=== PATIENT | female | born 1980 | race Caucasian/White ===

== ENCOUNTER 2016-09-16 22:00 | Outpatient (CLI) | payer BC, MEDICAID ==
[~2016-09-16] VITALS: Ht 170.2 cm; Wt 69.4 kg
[~2016-09-16 22:00] MED LIST: CEPH-507 PO; DOCU100C37 PO; FLUC150T PO; IBUP-1780 PO; OXYC-12; OXYC-465 PO; PREN1TAB39 PO; TERC45CR VG
[2016-09-16 22:20] VITALS: BP 129/76
[2016-09-16] MEDS ORDERED: D5 LR IV SOLUTION 1,000 ML IV ONE (22:23)
[2016-09-16] MEDS ORDERED: D5 LR IV SOLUTION 1,000 ML IV SCH (22:30)
[2016-09-16] MEDS ORDERED: LOPERAMIDE 2 MG (IMODIUM) CAP PO ONE (22:30)
[2016-09-16] MEDS ORDERED: ACETAMINOPHEN 500 MG TAB (TYLENOL) PO PRN (22:30)
[2016-09-16] MEDS ORDERED: LOPERAMIDE 2 MG (IMODIUM) CAP PO PRN (22:30)
[2016-09-16] MEDS ORDERED: ONDANSETRON 4 MG/2 ML (SDV) Z0FRAN IVP PRN (22:30)
[2016-09-16 22:42] LABS: KETONES,URINE 3+ (NEGATIVE); LEUKOCYTE ESTERASE ,URINE 2+ (NEGATIVE); NITRITE,URINE NEGATIVE (NEGATIVE); PH,URINE 6 (5-9); PROTEIN,URINE 2+ (NEGATIVE); UROBILINOGEN,URINE 1 MG/DL (NORMAL)
[2016-09-16 22:52] LABS: BASOPHILS % (AUTO) 0 % (0-10); EOSINOPHILS # (AUTO) 0.2 10^3/uL (0.0-0.3); EOSINOPHILS % (AUTO) 2 % (0-10); LYMPHOCYTES # (AUTO) 0.9 X 10^3 (1.0-4.0); LYMPHOCYTES % (AUTO) 8 % (12-44); MEAN CORPUSCULAR HEMOGLOBIN 26 PG (25-34); MEAN CORPUSCULAR HGB CONC 32 G/DL (32-36); MEAN CORPUSCULAR VOLUME 83 FL (80-99); MEAN PLATELET VOLUME 10.8 FL (7.4-10.4); MONOCYTES # (AUTO) 0.5 X 10^3 (0.0-1.0); MONOCYTES % (AUTO) 5 % (0-12); NEUTROPHILS # (AUTO) 9.4 X 10^3 (1.8-7.8); NEUTROPHILS % (AUTO) 86 % (42-75); PLATELET COUNT 134 10^3/uL (130-400); RED BLOOD COUNT 4.02 10^6/uL (4.35-5.85); RED CELL DISTRIBUTION WIDTH 13.4 % (10.0-14.5); WHITE BLOOD COUNT 10.9 10^3/uL (4.3-11.0)
[2016-09-16 22:53] LABS: BILIRUBIN,URINE 1+ (NEGATIVE)
[2016-09-16 22:56] LABS: WBC,URINE 25-50 /HPF
[2016-09-16 23:05] LABS: PROTEIN/CREATININE RATIO 0.1
[2016-09-16 23:14] LABS: ALANINE AMINOTRANSFERASE 16 U/L (0-55); ALBUMIN 3.2 GM/DL (3.2-4.5); ANION GAP 14 MMOL/L (5-14); ASPARTATE AMINO TRANSFERASE 25 U/L (5-34); BILIRUBIN,TOTAL 0.4 MG/DL (0.1-1.0); BLOOD UREA NITROGEN 10 MG/DL (7-18); BUN/CREATININE RATIO 14; CALCIUM 7.8 MG/DL (8.5-10.1); CARBON DIOXIDE 17 MMOL/L (21-32); CHLORIDE 105 MMOL/L (98-107); CREATININE SERUM 0.69 MG/DL (0.60-1.30); GFR ESTIMATED > 60; GLUCOSE 92 MG/DL (70-105); LACTATE DEHYDROGENASE 179 U/L (125-220); POTASSIUM 3.3 MMOL/L (3.6-5.0); SODIUM 136 MMOL/L (135-145); TOTAL PROTEIN 6.3 GM/DL (6.4-8.2); URIC ACID 4.7 MG/DL (2.6-7.2)
[2016-09-16 23:24] VITALS: BP 114/77
[2016-09-16] MEDS ORDERED: ONDANSETRON 4 MG/2 ML (SDV) Z0FRAN ONE (23:36)
[2016-09-16] MEDS ORDERED: LOPERAMIDE 2 MG (IMODIUM) CAP ONE (23:47)
[2016-09-17 00:21] VITALS: BP 114/77
--- NOTE | 2016-09-17 10:26 | Physician Query-Final Dx ---
JAVIER OLIVIER 09/17/16 1026: Clinic Account Progress/Dx Physician Query: Please give diagnosis Date of Service Sep 16, 2016 at 22:00 JUAN M TERRY MD 09/20/16 0911: Clinic Account Progress/Dx DIAGNOSIS: Diagnosis false labor JAVIER OLIVIER Sep 17, 2016 10:26 JUAN M TERRY MD Sep 20, 2016 09:11
== END 2016-09-17 00:21 | disposition home or self-care (01) ==
LOC: WSo 22:00
PROVIDERS: ATTEND Obstetrics & Gynecology
DX: O47.03 False labor before 37 completed weeks of gestation, third trimester (principal); Z3A.30 30 weeks gestation of pregnancy
CPT/HCPCS: 36415; 80053; 81000; 82570; 83615; 84156; 84550; 85025; 87088; 96361; 96374; 99213

== ENCOUNTER → 2016-10-05 | Outpatient (CLI) | payer BC, MEDICAID ==
[~2016-10-05] MED LIST changes: +BETAMETHASONE ACE/NA PHOS 6 MG/ML (CELESTONE SOLUSPAN) ONE
== END ==
LOC: WSo 11:09
PROVIDERS: ATTEND Obstetrics & Gynecology
DX: O09.219 Supervision of pregnancy with history of pre-term labor, unspecified trimester (principal)
CPT/HCPCS: 96372

== ENCOUNTER 2016-10-11 06:01 | Outpatient (CLI) | payer BC, MEDICAID ==
[~2016-10-11] VITALS: Ht 170.2 cm; Wt 69.4 kg
[~2016-10-11 06:01] MED LIST changes: -BETAMETHASONE ACE/NA PHOS 6 MG/ML (CELESTONE SOLUSPAN) ONE
[2016-10-11 06:22] VITALS: BP 127/78
[2016-10-11 07:00] LABS: BILIRUBIN,URINE NEGATIVE (NEGATIVE); KETONES,URINE NEGATIVE (NEGATIVE); LEUKOCYTE ESTERASE ,URINE 1+ (NEGATIVE); NITRITE,URINE NEGATIVE (NEGATIVE); PH,URINE 7 (5-9); PROTEIN,URINE NEGATIVE (NEGATIVE); UROBILINOGEN,URINE NORMAL (NORMAL)
[2016-10-11 07:32] LABS: BASOPHILS % (AUTO) 0 % (0-10); EOSINOPHILS # (AUTO) 0.3 10^3/uL (0.0-0.3); EOSINOPHILS % (AUTO) 2 % (0-10); LYMPHOCYTES # (AUTO) 1.6 X 10^3 (1.0-4.0); LYMPHOCYTES % (AUTO) 14 % (12-44); MEAN CORPUSCULAR HEMOGLOBIN 26 PG (25-34); MEAN CORPUSCULAR HGB CONC 32 G/DL (32-36); MEAN CORPUSCULAR VOLUME 81 FL (80-99); MEAN PLATELET VOLUME 11.2 FL (7.4-10.4); MONOCYTES % (AUTO) 9 % (0-12); NEUTROPHILS % (AUTO) 76 % (42-75); PLATELET COUNT 160 10^3/uL (130-400); RED BLOOD COUNT 3.94 10^6/uL (4.35-5.85); RED CELL DISTRIBUTION WIDTH 14.2 % (10.0-14.5); WHITE BLOOD COUNT 11.9 10^3/uL (4.3-11.0)
[2016-10-11] MEDS ORDERED: AMPICILLIN INJECTION 2,000 MG in NS (IVPB) 50 ML IV ONE (07:45)
--- NOTE | 2016-10-11 07:46 | History & Physical ---
History and Physical Date Seen by Provider: Oct 11, 2016 Time Seen by Provider: 07:43 this patient is a 36-year-old A1 white female with an EDC of 922 1734 weeks gestation. Her history is significant for having had 3 of 4 deliveries premature. She presented with complaint contractions. She was dilated to 2-1/2 -3 cm. She denied ruptured membranes or bleeding. She's had no specific problems with this . She indicates that way she feels is the way she has felt when she was in labor. Allergies are none Medications are vitamins and also takes Diflucan weekly for suppression of recurrent fungal vaginitis Past medical history, past surgical history, obstetric history, family history, and social histories are per the antepartum record HEENT exam is normal Neck is supple no lymphadenopathy no thyromegaly Abdomen is gravid soft nontender nondistended Extremities show no clubbing or cyanosis. There is no Homans sign. monitor shows irregular contractions with some uterine irritability and a normal heart rate pattern. Laboratory Tests Test 10/11/16 06:10 10/11/16 07:19 Range/Units Urine Color YELLOW Urine Clarity CLEAR Urine pH 7 5-9 Urine Specific Hemlock 1.010 L 1.016-1.022 Urine Protein NEGATIVE NEGATIVE Urine Glucose (UA) NEGATIVE NEGATIVE Urine Ketones NEGATIVE NEGATIVE Urine Nitrite NEGATIVE NEGATIVE Urine Bilirubin NEGATIVE NEGATIVE Urine Urobilinogen NORMAL NORMAL MG/DL Urine Leukocyte Esterase 1+ H NEGATIVE Urine RBC (Auto) NEGATIVE NEGATIVE Urine RBC NONE /HPF Urine WBC 5-10 H /HPF Urine Squamous Epithelial Cells 2-5 /HPF Urine Crystals NONE /LPF Urine Bacteria TRACE /HPF Urine Casts NONE /LPF Urine Mucus NEGATIVE /LPF Urine Culture Indicated YES White Blood Count 11.9 H 4.3-11.0 10^3/uL Red Blood Count 3.94 L 4.35-5.85 10^6/uL Hemoglobin 10.1 L 11.5-16.0 G/DL Hematocrit 32 L 35-52 % Mean Corpuscular Volume 81 80-99 FL Mean Corpuscular Hemoglobin 26 25-34 PG Mean Corpuscular Hemoglobin Concent 32 32-36 G/DL Red Cell Distribution Width 14.2 10.0-14.5 % Platelet Count 160 130-400 10^3/uL Mean Platelet Volume 11.2 H 7.4-10.4 FL Neutrophils (%) (Auto) 76 H 42-75 % Lymphocytes (%) (Auto) 14 12-44 % Monocytes (%) (Auto) 9 0-12 % Eosinophils (%) (Auto) 2 0-10 % Basophils (%) (Auto) 0 0-10 % Neutrophils # (Auto) 9.0 H 1.8-7.8 X 10^3 Lymphocytes # (Auto) 1.6 1.0-4.0 X 10^3 Monocytes # (Auto) 1.0 0.0-1.0 X 10^3 Eosinophils # (Auto) 0.3 0.0-0.3 10^3/uL Basophils # (Auto) 0.0 0.0-0.1 10^3/uL Lab work is concerning for a urinary tract infection Assessment and plan 34 week gestation with contractions/ labor. Patient may have a UTI and will be started on ampicillin for GBS prophylaxis which will cover her UTI in any event. Hydrate the patient observed for progression. This patient's history of labor and delivery is warranted the administration of betamethasone which was done approximately a week ago. The patient does progress in labor than no tocolyse's will be utilized as patient is past 34 weeks gestation. labor Allergies and Home Medications Allergies Coded Allergies: No Known Drug Allergies (Verified , 07/17/08) Home Medications Vits W-Ca,Fe,Fa(<1MG) 1 Each Tablet, 1 EACH PO DAILY, (Reported) JUAN M TERRY MD Oct 11, 2016 07:46
[2016-10-11] MEDS ORDERED: AMPICILLIN INJECTION 1,000 MG in NS (IVPB) 50 ML IV SCH (08:00)
[2016-10-11] MEDS: D5 LR IV SOLUTION 1,000 ML IV SCH ×2 (08:32→11:04)
[2016-10-11] MEDS ORDERED: CALC500T7 PO (08:38)
[2016-10-11] MEDS ORDERED: FLUC50TA PO (08:38)
[2016-10-11 09:20] VITALS: BP 120/77
--- NOTE | 2016-10-11 11:41 | Diagnostic Imaging Report ---
INDICATION: Variable decelerations. TECHNIQUE: Multiple real-time grayscale images were obtained over the gravid uterus. COMPARISON: None FINDINGS: There are no prior studies available for comparison. Reportedly the patient has had a previous ultrasound during this . According to that exam the estimated gestational age is 34 weeks 4 days with an EDC of November 18, 2016. On this exam there is a single live fetus in cephalic presentation. heart motion was noted, and a rate of 130 bpm was recorded. There are no obvious abnormalities identified. The fetus is somewhat difficult to evaluate as the amniotic fluid index is at the lowest end of normal (8.1, normal 8 to 22 cm.) The placenta is anterior, and there is no previa. The growth parameters are fairly uniform. IMPRESSION: 1. There is a single live fetus approximately 34 weeks 2 days gestation +/- 3 weeks. The EDC is 11/20/2016. 2. There were no obvious abnormalities identified. 3. The amniotic fluid index is at the lowest end of normal. Biometrical measurements are as follows: Biparietal 8.62 cm, age 34 weeks 6 days. Head circumference 30.14 cm, age 33 weeks 4 days. Abdominal circumference 29.80 cm, age 33 weeks 6 days. Femur length 6.7 cm, age 34 weeks 4 days. Sonographic estimate age: 34 weeks 2 days. Sonographic estimated date of delivery: 11/20/2016. Estimated Weight: 2333 gm (+/- 341 gm). LMP percentile: 30%. heart rate: 130 beats per minute. number: 1 of 1. Dictated by: Dictated on workstation # [id number]
[2016-10-11] MEDS ORDERED: NITR-65 PO (13:32)
== END 2016-10-11 14:15 | disposition home or self-care (01) ==
LOC: WSo 06:01 → LDRP 06:01 → WSo 14:15
PROVIDERS: ATTEND Obstetrics & Gynecology
DX: O60.03 Preterm labor without delivery, third trimester (principal); O23.93 Unspecified genitourinary tract infection in pregnancy, third trimester; Z3A.34 34 weeks gestation of pregnancy
CPT/HCPCS: 36415; 76805; 76819; 81000; 85025; 87088; 96361; 96374; 96376; 99213

== ENCOUNTER 2016-10-16 17:48 | Outpatient (CLI) | payer BC, MEDICAID ==
[~2016-10-16] VITALS: Ht 172.7 cm; Wt 72.7 kg
[~2016-10-16 17:48] MED LIST changes: +CALC500T7 PO; +FLUC50TA PO; +NITR-65 PO
[2016-10-16 18:00] VITALS: BP 129/80
[2016-10-16] MEDS ORDERED: D5 LR IV SOLUTION 1,000 ML IV ONE (18:08)
[2016-10-16] MEDS ORDERED: AMPICILLIN 2000 MG INJECTION (IM/IV) ONE (18:10)
[2016-10-16] MEDS ORDERED: NS (IVPB) 50 ML ONE (18:10)
[2016-10-16] MEDS ORDERED: AMPICILLIN INJECTION 2,000 MG in NS (IVPB) 50 ML IV ONE (18:25)
[2016-10-16 19:00] LABS: BASOPHILS % (AUTO) 0 % (0-10); EOSINOPHILS # (AUTO) 0.3 10^3/uL (0.0-0.3); EOSINOPHILS % (AUTO) 3 % (0-10); LYMPHOCYTES # (AUTO) 1.6 X 10^3 (1.0-4.0); LYMPHOCYTES % (AUTO) 16 % (12-44); MEAN CORPUSCULAR HEMOGLOBIN 26 PG (25-34); MEAN CORPUSCULAR HGB CONC 32 G/DL (32-36); MEAN CORPUSCULAR VOLUME 80 FL (80-99); MONOCYTES # (AUTO) 0.5 X 10^3 (0.0-1.0); MONOCYTES % (AUTO) 5 % (0-12); NEUTROPHILS # (AUTO) 7.9 X 10^3 (1.8-7.8); NEUTROPHILS % (AUTO) 77 % (42-75); PLATELET COUNT 166 10^3/uL (130-400); RED BLOOD COUNT 3.69 10^6/uL (4.35-5.85); RED CELL DISTRIBUTION WIDTH 14.8 % (10.0-14.5); WHITE BLOOD COUNT 10.4 10^3/uL (4.3-11.0)
[2016-10-16] MEDS ORDERED: D5 LR IV SOLUTION 1,000 ML IV SCH (19:00)
[2016-10-16] MEDS ORDERED: AMPICILLIN INJECTION 1,000 MG in NS (IVPB) 50 ML IV SCH ×2 (19:00→22:25)
[2016-10-16 19:45] VITALS: BP 129/80
--- NOTE | 2016-10-18 11:59 | Physician Query-Final Dx ---
JAVIER OLIVIER 10/18/16 1159: Clinic Account Progress/Dx Physician Query: Please give diagnosis Date of Service Oct 16, 2016 at 17:48 JUAN M TERRY MD 10/28/16 0822: Clinic Account Progress/Dx DIAGNOSIS: Diagnosis false labor JAVIER OLIVIER Oct 18, 2016 11:59 JUAN M TERRY MD Oct 28, 2016 08:22
[2016-10-30] MEDS ORDERED: OXYC-465 PO (07:47)
[2016-10-30] MEDS ORDERED: IBUP-1780 PO (07:47)
[2016-10-30] MEDS ORDERED: DOCU100C37 PO (07:47)
== END 2016-10-16 19:45 | disposition home or self-care (01) ==
LOC: WSo 17:48 → LDRP 17:49 → WSo 19:45
PROVIDERS: ATTEND Obstetrics & Gynecology
DX: O47.03 False labor before 37 completed weeks of gestation, third trimester (principal); Z3A.35 35 weeks gestation of pregnancy
CPT/HCPCS: 36415; 85025; 86850; 86900; 86901; 87081; 96361; 96374; 99213

== ENCOUNTER 2016-10-20 21:46 | Outpatient (CLI) | payer BC, MEDICAID ==
[~2016-10-20] VITALS: Ht 172.7 cm; Wt 74.0 kg
[2016-10-20 22:05] VITALS: BP 123/74
--- NOTE | 2016-10-21 12:34 | Physician Query-Final Dx ---
KLEBER MCKEON 10/21/16 1234: Clinic Account Progress/Dx Physician Query: Please give diagnosis Date of Service Oct 20, 2016 at 21:46 JUAN M TERRY MD 10/28/16 0900: Clinic Account Progress/Dx DIAGNOSIS: Diagnosis false labor KLEBER MCKEON Oct 21, 2016 12:34 JUAN M TERRY MD Oct 28, 2016 09:00
[2016-10-30] MEDS ORDERED: IBUP-1780 PO (07:47)
[2016-10-30] MEDS ORDERED: DOCU100C37 PO (07:47)
[2016-10-30] MEDS ORDERED: OXYC-465 PO (07:47)
== END 2016-10-20 23:26 | disposition home or self-care (01) ==
LOC: WSo 21:46 → LDRP 21:47 → WSo 23:26
PROVIDERS: ATTEND Obstetrics & Gynecology
DX: O47.03 False labor before 37 completed weeks of gestation, third trimester (principal); Z3A.35 35 weeks gestation of pregnancy
CPT/HCPCS: 99214

== ENCOUNTER 2016-10-28 21:22 | Inpatient (IN) | payer BC, MEDICAID ==
[~2016-10-28] VITALS: Ht 172.7 cm; Wt 75.1 kg
[2016-10-28 21:38] VITALS: BP 143/86
[2016-10-28 21:42] VITALS: BP 129/75
[2016-10-29] VITALS (49 sets, daily range): BP systolic 85–137; BP diastolic 54–85
[2016-10-29] MEDS: D5 LR IV SOLUTION 1,000 ML IV SCH ×2 (01:15→15:31)
[2016-10-29] MEDS ORDERED: LIDOCAINE/EPI 2% 1:200,00 (XYLOCAINE) 10 ML VIAL ONE (01:32)
[2016-10-29] MEDS ORDERED: SUFENTA 0.6MCG/ML BUPIVA 0.125 100 ML ONE (01:34)
[2016-10-29 01:46] LABS: BASOPHILS % (AUTO) 0 % (0-10); EOSINOPHILS # (AUTO) 0.4 10^3/uL (0.0-0.3); EOSINOPHILS % (AUTO) 4 % (0-10); LYMPHOCYTES # (AUTO) 1.6 X 10^3 (1.0-4.0); LYMPHOCYTES % (AUTO) 16 % (12-44); MEAN CORPUSCULAR HEMOGLOBIN 25 PG (25-34); MEAN CORPUSCULAR HGB CONC 32 G/DL (32-36); MEAN CORPUSCULAR VOLUME 79 FL (80-99); MEAN PLATELET VOLUME 10.2 FL (7.4-10.4); MONOCYTES # (AUTO) 0.7 X 10^3 (0.0-1.0); MONOCYTES % (AUTO) 7 % (0-12); NEUTROPHILS # (AUTO) 7.2 X 10^3 (1.8-7.8); NEUTROPHILS % (AUTO) 73 % (42-75); PLATELET COUNT 132 10^3/uL (130-400); RED BLOOD COUNT 3.94 10^6/uL (4.35-5.85); RED CELL DISTRIBUTION WIDTH 15.1 % (10.0-14.5); WHITE BLOOD COUNT 9.9 10^3/uL (4.3-11.0)
[2016-10-29] MEDS ORDERED: BUPIVACAINE 0.25% 30 ML (SENSORCAINE) VIAL ONE (02:59)
[2016-10-29] MEDS ORDERED: LIDOCAINE PF 2% 5 ML (XYLOCAINE) VIAL ONE (02:59)
[2016-10-29] MEDS ORDERED: fentaNYL INJECTION 100 MCG/2 ML AMP ONE (02:59)
[2016-10-29] MEDS ORDERED: LACTATED RINGERS 1,000 ML IV ONE ×2 (03:04)
[2016-10-29] MEDS ORDERED: EPIDURAL (SUFENTA 0.6MCG/ML BUPIVA 0.125%) 100 ML BAG EPI PRN (03:15)
[2016-10-29] MEDS ORDERED: NALOXONE 0.4 MG/ML 1 ML (NARCAN) VIAL IV PRN (03:15)
[2016-10-29] MEDS ORDERED: ONDANSETRON 4 MG/2 ML (SDV) Z0FRAN IV PRN (03:15)
[2016-10-29] MEDS: CATHETER FLUSH 10 ML SYR IV SCH ×3 (05:26→21:00)
[2016-10-29] MEDS ORDERED: OXYTOCIN/NORMAL SALINE 500 ML IV SCH ×2 (05:38→06:27)
[2016-10-29] MEDS ORDERED: BENZOCAINE/MENTHOL (DERMOPLAST) 56 ML CAN TP PRN (06:30)
[2016-10-29] MEDS ORDERED: TETANUS,DIPTH,PERTUSS P/F (BOOSTRIX) 0.5 ML VIAL IM ONE (06:30)
[2016-10-29] MEDS ORDERED: ONDANSETRON 4 MG/2 ML (SDV) Z0FRAN IVP PRN (06:30)
[2016-10-29] MEDS ORDERED: MEASLES,MUMPS,RUBELLA 1 EA INJ SC ONE (06:30)
--- NOTE | 2016-10-29 06:36 | History & Physical ---
History and Physical Date Seen by Provider: Oct 29, 2016 Time Seen by Provider: 06:31 this patient is a 36-year-old A1 white female with an EDC of October. Presented last evening at 36-6/7 weeks' gestation in labor. 3 of her 4 deliveries have occurred before 37 weeks gestation. Patient denies rupture membranes or bleeding. GBS culture performed after 35 weeks gestation was negative. Patient was found to make progressive cervical change. Contractions were such intensity that she is requesting pain medication was allowed with epidural. Contractions did space out some after the epidural. She had been augmented now with Pitocin. Patient now is at 37 weeks gestation. Allergies are none Medications are vitamins and Diflucan weekly for fungal vaginitis suppression Past medical history, past surgical history, obstetric history, family history, and social histories are per the antepartum record HEENT exam is normal Neck supple no lymphadenopathy no thyromegaly Abdomen is gravid soft nontender nondistended Extremities show clubbing or cyanosis. There is no Homans sign. Pelvic exam reveals a cervix that is very anterior soft dilated 6 or 7 cm cervix is soft and stretchy to the point where her cervical dilation could to be up to 8 cm - there is a bulging bag of amniotic fluid well down into the vagina. Amniotomy that releases clear fluid some slight blood tinge. Presenting part is the vertex at the 0 to -1 station Laboratory Tests 10/29/16 01:38 Vital Signs Date Time Temp Pulse Resp B/P (MAP) Pulse Ox O2 Delivery O2 Flow Rate FiO2 10/28/16 21:42 96 18 129/75 Room Air 10/28/16 21:38 98.1 81 18 143/86 Room Air Vital signs are stable. Patient afebrile. Lab work is normal. Assessment and plan labor at the time of admission now at 37 weeks gestation with term in labor amniotomy has been performed and we expect vaginal delivery. Patient's labor has somewhat stalled we are augmenting with Pitocin. GBS culture was negative. labor Allergies and Home Medications Allergies Coded Allergies: No Known Drug Allergies (Verified , 10/20/16) Home Medications Vits W-Ca,Fe,Fa(<1MG) 1 Each Tablet, 1 EACH PO DAILY, (Reported) Clinical Quality Measures DVT/VTE Risk/Contraindication: Risk Factor Score Per Nursin RFS Level Per Nursing on Admit: 1=Low/No VTE PPX JUAN M TERRY MD Oct 29, 2016 06:36
[2016-10-29] MEDS: KETOROLAC 30 MG/ML VIAL IV SCH ×3 (08:40→21:00)
[2016-10-29] MEDS: oxyCODONE/APAP 10/325MG (PERCOCET 10) TABLET PO PRN ×4 (10:18→22:42)
[2016-10-29] MEDS: DOCUSATE SODIUM 100 MG (COLACE) CAP PO SCH ×2 (10:18→21:00)
--- NOTE | 2016-10-29 14:38 | OPERATIVE REPORT ---
DATE OF SERVICE: 10/29/2016 The patient delivered by term spontaneous vaginal delivery at 37 weeks gestation a viable female with Apgars of 8 and 9 at 1 and 5 minutes respectively, weight 6 pounds 11 ounces, time of 07:37. The was delivered over a first degree perineal laceration under epidural analgesia. The infant was bulb suctioned on delivery of the head. The delivery was completed. The baby was bulb suctioned and dried, warmed and stimulated. The umbilical cord when pulseless was double clamped, father cut the cord, the baby was passed to mom's abdomen. The placenta delivered spontaneously Lazaro very promptly. It was normal with a 3 vessel cord. The cervix, vagina, rectum and perineum were examined and found intact except for a first degree perineal laceration extending across the posterior fourchette just inside the hammer ring and then down on the perineal body. This was repaired in the usual manner with a single suture of 3-0 Vicryl repeat. Sponge and needle counts were correct on completion of the delivery and the repair. Estimated blood loss was around 200 mL. The patient tolerated the delivery and the repair well and remained in the LDR for recovery. The baby remained with the mom. Job ID: [id number] DocumentID: [id number] Dictated Date: 10/29/2016 07:54:37 [employer] Date: 10/29/2016 14:38:35 Dictated By: JUAN M TERRY MD
[2016-10-30 00:27] VITALS: BP 106/69
[2016-10-30] MEDS: oxyCODONE/APAP 10/325MG (PERCOCET 10) TABLET PO PRN ×2 (00:27→10:11)
[2016-10-30 03:57] VITALS: BP 118/72
[2016-10-30] MEDS: KETOROLAC 30 MG/ML VIAL IV SCH (03:57)
[2016-10-30] MEDS ORDERED: IBUPROFEN 800 MG (MOTRIN) TAB PO SCH (06:30)
--- NOTE | 2016-10-30 07:46 | Progress Note-Standard ---
Standard Progress Note Progress Notes/Assess & Plan Date Seen by Provider: Oct 30, 2016 Time Seen by Provider: 07:45 Progress/Assessment & Plan this patient is without complaint. She is ambulating, voiding, tolerating by mouth well, has good pain control. Patient is requesting discharge home. Vital Signs Date Time Temp Pulse Resp B/P (MAP) Pulse Ox O2 Delivery O2 Flow Rate FiO2 10/30/16 03:57 96.8 96 18 118/72 98 Room Air 10/30/16 00:27 98.0 99 18 106/69 98 Room Air 10/29/16 21:00 98.1 84 18 114/72 97 Room Air 10/29/16 16:38 98.0 83 18 111/75 98 Room Air 10/29/16 15:25 98.3 82 18 118/75 100 Room Air 10/29/16 12:00 97.3 85 18 117/70 100 Room Air 10/29/16 09:30 94 18 119/64 100 Room Air 10/29/16 09:15 98.4 86 18 117/72 100 Room Air 10/29/16 09:00 86 18 115/67 100 Room Air 10/29/16 08:45 78 18 120/80 100 Room Air 10/29/16 08:30 92 18 116/75 100 Room Air 10/29/16 08:15 96 18 110/65 100 Room Air 10/29/16 08:00 97 18 116/58 100 Room Air vital signs are stable. Patient is afebrile. fundus is firm below the umbilicus and nontender. Extremities show no clubbing or cyanosis. There is no Homans sign. Assessment and plan day number 1 status post term spontaneous vaginal delivery doing well. Plan is for discharge home with follow-up in clinic. Final Diagnosis 37 week spontaneous vaginal delivery JUAN M TERRY MD Oct 30, 2016 7:45 am
[2016-10-30] MEDS ORDERED: OXYC-465 PO (07:47)
[2016-10-30] MEDS ORDERED: IBUP-1780 PO (07:47)
[2016-10-30] MEDS ORDERED: DOCU100C37 PO (07:47)
--- NOTE | 2016-10-30 07:47 | Discharge Instructions ---
Discharge Instructions Discharge Medications New, Converted or Re-Newed RX: RX on Chart Patient Instructions Patient Instructions: as directed Return to The Hospital For: as directed Activity & Diet Discharge Diet: No Restrictions Activity as Tolerated: No Orders-Post D/C & Referrals Follow Up Appt: Call to make follow up appt. for patient in 4 weeks. Activity Per routine post vaginal delivery instructions. Please call in RX to patient pharmacy. Diet as tolerated Patient may shower or tub bathe as desired. JUAN M TERRY MD Oct 30, 2016 7:47 am
[2016-10-30 08:00] VITALS: BP 125/87
[2016-10-30] MEDS: DOCUSATE SODIUM 100 MG (COLACE) CAP PO SCH (10:10)
[2016-10-30] MEDS ORDERED: TETANUS,DIPTH,PERTUSS P/F (BOOSTRIX) 0.5 ML VIAL IM ONE (11:43)
[2016-10-30 12:00] VITALS: BP 125/87
== END 2016-10-30 12:00 | disposition home or self-care (01) | DRG 775 ==
LOC: WSo 21:22 → LDRP 21:23 → WSo 10-29 01:04 → LDRP 10-29 10:00
PROVIDERS: ADMIT Obstetrics & Gynecology; ATTEND Obstetrics & Gynecology
PROC: 10E0XZZ Delivery of Products of Conception, External Approach (ICD-10-PCS; principal; 2016-10-29)
PROC: 0HQ9XZZ Repair Perineum Skin, External Approach (ICD-10-PCS; 2016-10-29)
DX: O70.0 First degree perineal laceration during delivery (principal); Z37.0 Single live birth; Z23 Encounter for immunization; Z3A.37 37 weeks gestation of pregnancy
CPT/HCPCS: 36415; 85025; 86850; 86900; 86901; 90715; 99212

== ENCOUNTER → 2018-07-06 | Outpatient (CLI) | payer BC, MEDICAID ==
--- NOTE | 2018-07-06 21:14 | Diagnostic Imaging Report ---
INDICATION: Routine screening. No prior mammograms are available for comparison. This is a baseline study. 2-D and 3-D bilateral screening mammography was performed with a Computer Aided Detection (CAD) system. FINDINGS: Both breasts are heterogeneously dense, limiting the sensitivity of mammography. No mass or malignant appearing microcalcifications are seen. Axillae are unremarkable. IMPRESSION: No mammographic features suspicious for malignancy are identified. ACR BI-RADS Category 1: Negative. Result letter will be mailed to the patient. Note: At least 10% of breast cancer is not imaged by mammography. Dictated by: Dictated on workstation # [id number]
== END ==
LOC: RAD 10:11
PROVIDERS: ATTEND Obstetrics & Gynecology
DX: Z12.31 Encounter for screening mammogram for malignant neoplasm of breast (principal)
CPT/HCPCS: 77067

== ENCOUNTER 2019-06-14 00:11 | Inpatient (IN) | payer BC, MEDICAID ==
[2019-06-14] VITALS (29 sets, daily range): BP systolic 99–137; BP diastolic 50–91
[~2019-06-14] VITALS: Ht 172.7 cm; Wt 77.5 kg
--- NOTE | 2019-06-14 00:20 | NUR ---
MAUREEN NORTON presented to unit via AMBULATION from HOME/ED, accompanied by SO, with c/o CONTRACTIONS. MAUREEN NORTON weighed, gowned, voided, and to bed. EFHM and TOCO applied, VS taken. MAUREEN NORTON oriented to bed controls, call light, TV, heat, and A/C controls.
[2019-06-14] MEDS ORDERED: D5 LR IV SOLUTION 1,000 ML IV ONE (00:36)
[2019-06-14] MEDS ORDERED: D5 LR IV SOLUTION 1,000 ML IV SCH ×2 (00:55→02:12)
[2019-06-14 02:18] LABS: BASOPHILS % (AUTO) 0 % (0-10); EOSINOPHILS # (AUTO) 0.2 10^3/uL (0.0-0.3); EOSINOPHILS % (AUTO) 2 % (0-10); HEMATOCRIT 34 % (35-52); HEMOGLOBIN 10.9 G/DL (11.5-16.0); LYMPHOCYTES # (AUTO) 1.4 X 10^3 (1.0-4.0); LYMPHOCYTES % (AUTO) 17 % (12-44); MEAN CORPUSCULAR HEMOGLOBIN 26 PG (25-34); MEAN CORPUSCULAR HGB CONC 32 G/DL (32-36); MEAN CORPUSCULAR VOLUME 81 FL (80-99); MEAN PLATELET VOLUME 11.8 FL (7.4-10.4); MONOCYTES # (AUTO) 0.8 X 10^3 (0.0-1.0); MONOCYTES % (AUTO) 9 % (0-12); NEUTROPHILS # (AUTO) 5.9 X 10^3 (1.8-7.8); NEUTROPHILS % (AUTO) 71 % (42-75); PLATELET COUNT 129 10^3/uL (130-400); RED CELL DISTRIBUTION WIDTH 15.4 % (10.0-14.5); WHITE BLOOD COUNT 8.3 10^3/uL (4.3-11.0)
[2019-06-14] MEDS ORDERED: fentaNYL 2 mcg/ml BUPIVA 0.125 100 ML ONE (02:20)
[2019-06-14] MEDS ORDERED: OXYTOCIN PRE-MIX DRIP 500 ML IV ONE (02:20)
--- OUTSIDE RECORDS SUMMARY | 2019-06-14 02:49 | XMS REPORT ---
Author Author [facility] Organization [facility] Address [address] [address] Care Team Providers [facility] Name Role Phone CHELSEAHIEU JAH Naomi Unavailable JUAN M TERRY Unavailable JUAN M TERRY MD Unavailable Unavailable JUAN M TERRY MD Unavailable Unavailable JUAN M TERRY MD Unavailable Unavailable JUAN M TERRY MD Unavailable Unavailable Allergies Normalized Allergy Reported Date of Reaction(s) Care Provider Facility Allergy Type classification allergen Allergy Onset DA (20 Unclassified No Known Drug 07-17-2008 - no information JUAN M Not Available sources.) Allergies [facility] (65095) Medications No Information Problems Active Problems Problem Normalized Date of Normalized Normalized Provider Fac ility Classification Problem(s) Problem Problem Problem Sta tus Onset/Resoluti Duration on Other Constipation, Episodic Active JUAN M Not Avai lable gastrointestin unspecified [facility] (46938) al disorders (5 sources.) Other Diseases of Episodic Active JUAN M Not Availa ble complications the digestive [facility] , (75135) of system (5 sources.) complicating , third trimester Immunizations Encounter for Episodic Active JUAN M [facility] Via and screening immunization Lianet T[facility] for infectious [facility] - disease (9 [place] sources.) (26604) Other Encounter for Episodic Active JUAN M [facility] Via screening for screening Lianet TERRY suspected mammogram for [facility] - conditions malignant [place] (not mental neoplasm of (32033) disorders or breast infectious disease) (1 source.) Early or False labor Episodic Active JUAN M Not Availa ble threatened before 37 [place] , (38721) labor (22 completed MD sources.) weeks of gestation, third trimester Translations: [ LABOR WITHOUT DELIVERY, THIRD TR, LABOR THIRD TRI W DELIVE] OB-related First degree Episodic Active JUAN M [facility] Via trauma to perineal Lianet TERRY perineum and laceration Hospital - vulva (9 during [place] sources.) delivery (89604) Translations: [ SECOND DEGREE PERINEAL LACERATION DURING] Other Single live Episodic Active JUAN M [facility] Via and Lianet TERRY delivery [facility] - including [place] normal (9 (32514) sources.) Other Splenomegaly, Episodic Active JUAN M [facility] Via gastrointestin not elsewhere Lianet TERRY al disorders classified [facility] - (4 sources.) [place] (33293) Other Supervision of Episodic Active JUAN M Not Michelle ilable complications with [facility] , (57083) of history of MD (3 sources.) pre-term labor, unspecified trimester Other Unspecified Episodic Active JUAN M Not Availa ble complications genitourinary [facility] , (47378) of tract MD (4 sources.) infection in , third trimester Other Unspecified Episodic Active JUAN M Not Availa ble complications infection of [facility] , (10069) of urinary tract MD (5 sources.) in , third trimester Past or Other Problems Problem Normalized Date of Normalized Normalized Provider Fac ility Classification Problem(s) Problem Problem Problem Sta tus Onset/Resoluti Duration on Residual 30 weeks no information no information JUAN M Not Available codes; gestation of [facility]ISON , (26876) unclassified (2 sources.) Residual 34 weeks no information no information JUAN M Not Available codes; gestation of [facility] , (14501) unclassified (9 sources.) Unclassified 35 weeks no information no information JUAN M Not Available (11 sources.) gestation of [facility]ISON , (94509) MD Translations: [ 30 WEEKS GESTATION OF , 37 WEEKS GESTATION OF ] Residual 36 weeks no information no information JUAN M [facility] Via codes; gestation of Lianet TERRY unclassified Hospital - (4 sources.) [place] (77381) Residual 37 weeks no information no information JUAN M [facility] Via codes; gestation of Lianet TERRY unclassified Hospital - (1 source.) [place] (72381) Procedures Procedure Normalized Procedure Procedure Result Performer Facility Date DELIVERY OF PRODUCTS no information no name (no phone) [facility] V ia Lianet OF CONCEPTION, EXTE [facility] (32250) Repair Perineum no information no name (no phone) [facility] Via risti Muscle, Open Approach [facility] (29596) Repair Perineum Skin, no information no name (no phone) Not Available (92113) External Approach Immunizations The data below is from unstructured sourcesNo immunization records. Results No Information Vital Signs The data below is from unstructured sources Vital Response Date/Time Temperature (Fahrenheit) 97.2 degree s F (97.6 - 99.5) 07/17/2015 8:26am Temperature (Calculated Celsius) 36. 12935 degrees C (36.4 - 37.5) 07/17/2015 8:26am Temperature Source Tympanic 07/17/2015 8:26am Pulse Rate (adult) 87 bpm (60 - 90) 07/17/2015 8:26am Respiratory Rate 18 bpm (12 - 24) 07/17/2015 8:26am Blood Pressure 114/70 mm Hg 07/17/2015 8:26am Blood Pressure Mean 85 mm Hg 07/17/2015 8:26am Pain Pain Intensity 2 2015 8:26am Height (Feet) 5 feet 6:16pm Height (Inches) 8.00 inches 07/16/2015 6:16pm Height (Calculated Centimeters) 172. 452062 cm 07/16/2015 6:16pm Weight (Pounds) 153 pounds 07/16/2015 6:16pm Weight (Ounces) 0.0 oz 0 07/16/2015 6:16pm Weight (Calculated Grams) 47980.633 gm 07/16/2015 6:16pm Weight (Calculated Kilograms) 69.399 633 kilograms 07/16/2015 6:16pm Calculated BMI 23.3 06/28 6:16pm Vital Response Date/Time Temperature (Fahrenheit) 98.5 degree s F (97.6 - 99.5) 08/01/2015 8:55am Temperature (Calculated Celsius) 36. 69052 degrees C (36.4 - 37.5) 08/01/2015 8:55am Temperature Source Tympanic 08/01/2015 8:55am Pulse Rate (adult) 94 bpm (60 - 90) 08/01/2015 8:55am Respiratory Rate 17 bpm (12 - 24) 08/01/2015 8:55am O2 Sat by Pulse Oximetry 100 % (88 - 100) 08/01/2015 8:55am Blood Pressure 120/75 mm Hg 08/01/2015 8:55am Blood Pressure Mean 90 mm Hg 08/01/2015 8:55am Pain Pain Intensity 4 2015 12:05pm Height (Feet) 5 feet 02/2015 3:00am Height (Inches) 8.50 inches 07/30/2015 3:00am Height (Calculated Centimeters) 173. 479886 cm 07/30/2015 3:00am Weight (Pounds) 153 pounds 07/30/2015 3:00am Weight (Ounces) 6.0 oz 0 07/30/2015 3:00am Weight (Calculated Grams) 04324.730 gm 07/30/2015 3:00am Weight (Calculated Kilograms) 69.569 730 kilograms 07/30/2015 3:00am Calculated BMI 23.0 02/2015 3:00am Vital Response Date/Time Temperature (Fahrenheit) 98.6 degree s F (97.6 - 99.5) 10/11/2016 11:30am Temperature (Calculated Celsius) 37. 76984 degrees C (36.4 - 37.5) 10/11/2016 11:30am Temperature Source Tympanic 10/11/2016 11:30am Pulse Rate (adult) 80 bpm (60 - 90) 10/11/2016 9:20am Respiratory Rate 18 bpm (12 - 24) 10/11/2016 9:20am Blood Pressure 120/77 mm Hg 10/11/2016 9:20am Blood Pressure Mean 91 mm Hg 10/11/2016 9:20am Pain Numeric Pain Scale 6 9:20am Height (Feet) 5 feet 6:16am Height (Inches) 7.00 inches 10/11/2016 6:16am Height (Calculated Centimeters) 170. 491926 cm 10/11/2016 6:16am Weight (Pounds) 153 pounds 10/11/2016 6:16am Weight (Ounces) 0.0 oz 0 10/11/2016 6:16am Weight (Calculated Grams) 06800.63 gm 10/11/2016 6:16am Weight (Calculated Kilograms) 69.399 633 kilograms 10/11/2016 6:16am Calculated BMI 24.0 09/28 6:16am Weight Measurement Method Standing Scale 10/11/2016 6:16am Vital Response Date/Time Temperature (Fahrenheit) 97.9 degree s F (97.6 - 99.5) 10/16/2016 7:45pm Temperature (Calculated Celsius) 36. 32078 degrees C (36.4 - 37.5) 10/16/2016 6:00pm Temperature Source Tympanic 10/16/2016 7:45pm Pulse Rate (adult) 88 bpm (60 - 90) 10/16/2016 7:45pm Respiratory Rate 18 bpm (12 - 24) 10/16/2016 7:45pm Blood Pressure 129/80 mm Hg 10/16/2016 7:45pm Blood Pressure Mean 96 mm Hg 10/16/2016 6:00pm Pain Numeric Pain Scale 0-No Pain 10/16/2016 7:45pm Height (Feet) 5 feet 5:55pm Height (Inches) 8.00 inches 10/16/2016 5:55pm Height (Calculated Centimeters) 172. 279460 cm 10/16/2016 5:55pm Weight (Pounds) 160 pounds 10/16/2016 5:55pm Weight (Ounces) 4.0 oz 0 10/16/2016 5:55pm Weight (Calculated Grams) 16481.18 gm 10/16/2016 5:55pm Weight (Calculated Kilograms) 72.688 178 kilograms 10/16/2016 5:55pm Calculated BMI 24.4 09/28 5:55pm Weight Measurement Method Standing Scale 10/16/2016 5:55pm Vital Response Date/Time Temperature (Fahrenheit) 98.2 degree s F (97.6 - 99.5) 10/20/2016 10:05pm Temperature (Calculated Celsius) 36. 82311 degrees C (36.4 - 37.5) 10/20/2016 10:05pm Temperature Source Temporal 10/20/2016 10:05pm Pulse Rate (adult) 93 bpm (60 - 90) 10/20/2016 10:05pm Respiratory Rate 18 bpm (12 - 24) 10/20/2016 10:05pm Blood Pressure 123/74 mm Hg 10/20/2016 10:05pm Blood Pressure Mean 90 mm Hg 10/20/2016 10:05pm Pain Numeric Pain Scale 4 10:16pm Height (Feet) 5 feet 9:57pm Height (Inches) 8.00 inches 10/20/2016 9:57pm Height (Calculated Centimeters) 172. 340172 cm 10/20/2016 9:57pm Weight (Pounds) 163 pounds 10/20/2016 9:57pm Weight (Ounces) 4.0 oz 0 10/20/2016 9:57pm Weight (Calculated Grams) 74640.96 gm 10/20/2016 9:57pm Weight (Calculated Kilograms) 74.048 955 kilograms 10/20/2016 9:57pm Calculated BMI 24.8 09/29 9:57pm Weight Measurement Method Standing Scale 10/20/2016 9:57pm Vital Response Date/Time Temperature (Fahrenheit) 96.8 degree s F (97.6 - 99.5) 10/30/2016 12:00pm Temperature (Calculated Celsius) 36. 20301 degrees C (36.4 - 37.5) 10/30/2016 10:41am Temperature Source Temporal 10/30/2016 12:00pm Pulse Rate (adult) 106 bpm (60 - 90) 10/30/2016 12:00pm Respiratory Rate 18 bpm (12 - 24) 10/30/2016 12:00pm O2 Sat by Pulse Oximetry 100 % (88 - 100) 10/30/2016 12:00pm Blood Pressure 125/87 mm Hg 10/30/2016 12:00pm Blood Pressure Mean 100 mm Hg 10/30/2016 8:00am Pain Numeric Pain Scale 3 12:00pm Height (Feet) 5 feet 9:59pm Height (Inches) 8.00 inches 10/28/2016 9:59pm Height (Calculated Centimeters) 172. 597283 cm 10/28/2016 9:59pm Weight (Pounds) 165 pounds 10/28/2016 9:59pm Weight (Ounces) 10.0 oz 10/28/2016 9:59pm Weight (Calculated Grams) 18561.24 gm 10/28/2016 9:59pm Weight (Calculated Kilograms) 75.126 237 kilograms 10/28/2016 9:59pm Calculated BMI 25.2 09/30 9:59pm Weight Measurement Method Standing Scale 10/28/2016 9:59pm Vital Response Date/Time Temperature (Fahrenheit) 96.8 degree s F (97.6 - 99.5) 10/30/2016 12:00pm Temperature (Calculated Celsius) 36. 44509 degrees C (36.4 - 37.5) 10/30/2016 10:41am Temperature Source Temporal 10/30/2016 12:00pm Pulse Rate (adult) 106 bpm (60 - 90) 10/30/2016 12:00pm Respiratory Rate 18 bpm (12 - 24) 10/30/2016 12:00pm O2 Sat by Pulse Oximetry 100 % (88 - 100) 10/30/2016 12:00pm Blood Pressure 125/87 mm Hg 10/30/2016 12:00pm Blood Pressure Mean 100 mm Hg 10/30/2016 8:00am Pain Numeric Pain Scale 3 12:00pm Height (Feet) 5 feet 9:59pm Height (Inches) 8.00 inches 10/28/2016 9:59pm Height (Calculated Centimeters) 172. 798692 cm 10/28/2016 9:59pm Weight (Pounds) 165 pounds 10/28/2016 9:59pm Weight (Ounces) 10.0 oz 10/28/2016 9:59pm Weight (Calculated Grams) 06743.24 gm 10/28/2016 9:59pm Weight (Calculated Kilograms) 75.126 237 kilograms 10/28/2016 9:59pm Calculated BMI 25.2 09/30 9:59pm Weight Measurement Method Standing Scale 10/28/2016 9:59pm Interventions No Information Plan of Treatment The data below is from unstructured sources Discharge Date 07/17/15 10:55am Instructions/Education Provided OB O UTPATIENT DISCHARGE Prescriptions See Medication Section Discharge Date 08/01/15 12:10pm Disposition 01 HOME, SELF-CARE Instructions/Education Provided POST DISCHARGE VAGINAL DELIVERY DISCHARGE Forms Provided PDI Prescriptions See Medication Section Referrals (Unspecified) - Reason(s) for Referral: 4 week post follow up appointment on August 27 @ 10:30 Additional Instructions/Education ca ll with questions or concerns. follow up as scheduled. Care Plan and Goals See Discharge In structions Section Discharge Date 10/11/16 2:15pm Instructions/Education Provided OB O UTPATIENT DISCHARGE Prescriptions See Medication Section Discharge Date 10/16/16 7:45pm Instructions/Education Provided OB O UTPATIENT DISCHARGE Prescriptions See Medication Section Discharge Date 10/20/16 11:26pm Instructions/Education Provided OB O UTPATIENT DISCHARGE Prescriptions See Medication Section Discharge Date 10/30/16 12:00pm Disposition 01 HOME, SELF-CARE Instructions/Education Provided VAGI NAL DELIVERY DISCHARGE Forms Provided Follow-Up Fax Prescriptions See Medication Section Discharge Date 10/30/16 12:00pm Disposition 01 HOME, SELF-CARE Instructions/Education Provided VAGI NAL DELIVERY DISCHARGE Forms Provided Follow-Up Fax Prescriptions See Medication Section Goals No Information Social History No Information Functional Status The data below is from unstructured sources Query Response Date Prashant rded Patient Orientation Person Place Time Situation Eyes Open August 14, 2015 2:55pm Query Response Date Prashant rded Patient Orientation Person Place Time Situation Eyes Open August 01, 2015 12:19pm No functional status information available. Mental Status No Information Encounters Encounter Normalized Encounter Encounter Diagnosis Care Provi donavan Organization Date Type 07-06-2018 Patient encounter no information no name (no phone) no organization name procedure (no phone) 10-28-2016 Patient encounter no information no name (no phone) no organization name procedure (no phone) Medical Equipment No Information Payers No Information Advance Directives Directive Response Recor ded Date/Time Advance Directives Yes 0 07/16/15 6:13pm Health Care Power of Tool Room Machinist No 07/16/15 6:13pm Organ Donor Yes 07/16/15 6:13pm Resuscitation Status Full Code 07/16/15 6:13pm Directive Response Recor ded Date/Time Advance Directives Yes 0 07/30/15 3:00am Health Care Power of Tool Room Machinist No 07/30/15 3:00am Organ Donor Yes 07/30/15 3:00am Resuscitation Status Full Code 07/30/15 3:00am Directive Response Recor ded Date/Time Advance Directives Yes 0 10/11/16 6:09am Health Care Power of Tool Room Machinist Yes 10/11/16 6:09am Organ Donor Yes 10/11/16 6:09am Resuscitation Status Full Code 10/11/16 6:09am Directive Response Recor ded Date/Time Advance Directives Yes 0 10/16/16 6:08pm Health Care Power of Tool Room Machinist Yes 10/16/16 6:08pm Organ Donor Yes 10/16/16 6:08pm Resuscitation Status Full Code 10/16/16 6:08pm Directive Response Recor ded Date/Time Advance Directives Yes 0 10/20/16 10:05pm Health Care Power of Tool Room Machinist Yes 10/20/16 10:05pm Organ Donor Yes 10/20/16 10:05pm Resuscitation Status Full Code 10/20/16 10:05pm Directive Response Recor ded Date/Time Advance Directives Yes 0 10/28/16 9:59pm Health Care Power of Tool Room Machinist Yes 10/28/16 9:59pm Organ Donor Yes 10/28/16 9:59pm Resuscitation Status Full Code 10/28/16 9:59pm Discharge Instructions No hospital discharge instructions. Patient Instructions Physician Instructions New, Converted or Re-Newed RX: RX on Chart Patient Instructions: As directed Return to The Hospital For: As directed Discharge Diet: No Restrictions Activity as Tolerated: No Follow Up Appt: Call to make follow up appt. for patient in 4 weeks. Activity Per routine post vaginal delivery instructions. Diet as tolerated Patient may shower or tub bathe as desired. Care Plan Patient Instructions:: As directed Patient Instructions Physician Instructions New, Converted or Re-Newed RX: RX on Chart Patient Instructions: As directed Return to The Hospital For: As directed Discharge Diet: No Restrictions Activity as Tolerated: No Follow Up Appt: Call to make follow up appt. for patient in 4 weeks. Activity Per routine post vaginal delivery instructions. Diet as tolerated Patient may shower or tub bathe as desired. Care Plan Patient Instructions:: As directed No hospital discharge instruction information available.No hospital discharge instruction information available.No hospital discharge instruction information available.No hospital discharge instruction information available. Additional Source Comments This clinical document has been generated using [employer] software that has been certified by the Office of the National Coordinator for Health Information Technology (ONC 15.99.04.3023.Diam.31.00.0.385850) and the National Committee for Director Of Resource Development (NCQA, as an eMeasure certified technology). FOR RECORDS PERTAINING TO PATIENTS WHO ARE OR HAVE BEEN ENROLLED IN A CHEMICAL D EPENDENCY/SUBSTANCE ABUSE PROGRAM, SOME INFORMATION MAY BE OMITTED. This clinica l summary was aggregated from multiple sources. Caution should be exercised in using it in the provision of clinical care. This summary normalizes information from multiple sources, and as a consequence, information in this document may ma terially change the coding, format and clinical context of patient data. In cabrera tion, data may be omitted in some cases. CLINICAL DECISIONS SHOULD BE BASED ON T HE PRIMARY CLINICAL RECORDS. [facility]. provides no warranty or guara ntee of the accuracy or completeness of information in this document.The followi information is based on time limited clinical information
--- OUTSIDE RECORDS SUMMARY | 2019-06-14 02:50 | XMS REPORT | Continuity of Care Document ---
Author Organization Unknown Address Unknown Phone Unavailable Allergies Active Description Code Type Severity Reaction Onset Reported/Identified Relationship to Patient Clinical Status Yes No Known Drug Allergies [id number] Drug Allergy Unknown N/A 10/20/2016 Medications There is no data. Problems Date Dx Coded Attending Type Code Diagnosis Diagnosed By 08/21/2010 Ot 644.21 EAR LY ONSET DELIVERY-DEL 08/21/2010 Ot 663.31 COR D ENTANGLE NEC-DELIV 08/21/2010 Ot 664.01 DEL W 1 DEG LACERAT-DEL 08/21/2010 Ot V27.0 DELI SLY-SINGLE LIVEBORN 06/25/2015 JUAN M TERRY MD Ot R16.1 SPLENOMEGALY, NOT ELSEWHERE CLASSIFIED 06/25/2015 JUAN M TERRY MD, Ot R16.1 SPLENOMEGALY, NOT ELSEWHERE CLASSIFIED 06/30/2015 JUAN M TERRY MD, Ot R16.1 SPLENOMEGALY, NOT ELSEWHERE CLASSIFIED 07/09/2015 JUAN M TERRY MD Ot R16.1 SPLENOMEGALY, NOT ELSEWHERE CLASSIFIED 07/17/2015 JUAN M TERRY MD Ot K59.00 CONSTIPATION, UNSPECIFIED 07/17/2015 JUAN M TERRY MD Ot O23.43 UNSP INFCT OF URINARY TRACT IN 07/17/2015 JUAN M TERRY MD Ot O60.03 LABOR WITHOUT DELIVERY, THIRD TR 07/17/2015 JUAN M TERRY MD, Ot O99.613 DISEASES OF THE DGSTV SYS COMP 07/17/2015 JUAN M TERRY MD, Ot Z3A.34 34 WEEKS GESTATION OF 07/21/2015 JUAN M TERRY MD, Ot R16.1 SPLENOMEGALY, NOT ELSEWHERE CLASSIFIED 07/25/2015 JUAN M TERRY MD, Ot K59.00 CONSTIPATION, UNSPECIFIED 07/25/2015 JUAN M TERRY MD, Ot O23.43 UNSP INFCT OF URINARY TRACT IN 07/25/2015 JUAN M TERRY MD, Ot O60.03 LABOR WITHOUT DELIVERY, THIRD TR 07/25/2015 JUAN M TERRY MD, Ot O99.613 DISEASES OF THE DGSTV SYS COMP 07/25/2015 JUAN M TERRY MD, Ot Z3A.34 34 WEEKS GESTATION OF 07/30/2015 JUAN M TERRY MD, Ot R16.1 SPLENOMEGALY, NOT ELSEWHERE CLASSIFIED 08/01/2015 JUAN M TERRY MD, Ot O60.14X0 LABOR THIRD TRI W DELIVE 08/01/2015 JUAN M TERRY MD, Ot O70.1 SECOND DEGREE PERINEAL LACERATION DURING 08/01/2015 JUAN M TERRY MD, Ot Z23 ENCOUNTER FOR IMMUNIZATION 08/01/2015 JUAN M TERRY MD Ot Z37.0 SINGLE LIVE 08/01/2015 JUAN M TERRY MD, Ot Z3A.36 36 WEEKS GESTATION OF 08/07/2015 JUAN M TERRY MD Ot R16.1 SPLENOMEGALY, NOT ELSEWHERE CLASSIFIED 08/13/2015 JUAN M TERRY MD, Ot R16.1 SPLENOMEGALY, NOT ELSEWHERE CLASSIFIED 08/14/2015 JUAN M TERRY MD, Ot O60.14X0 LABOR THIRD TRI W DELIVE 08/14/2015 JUAN M TERRY MD, Ot O70.1 SECOND DEGREE PERINEAL LACERATION DURING 08/14/2015 JUAN M TERRY MD Ot Z23 ENCOUNTER FOR IMMUNIZATION 08/14/2015 JUAN M TERRY MD Ot Z37.0 SINGLE LIVE 08/14/2015 JUAN M TERRY MD, Ot Z3A.36 36 WEEKS GESTATION OF 08/15/2015 JUAN M TERRY MD Ot R16.1 SPLENOMEGALY, NOT ELSEWHERE CLASSIFIED 08/22/2015 JUAN M TERRY MD Ot R16.1 SPLENOMEGALY, NOT ELSEWHERE CLASSIFIED 09/30/2015 JUAN M TERRY MD Ot R16.1 SPLENOMEGALY, NOT ELSEWHERE CLASSIFIED 10/27/2015 JUAN M TERRY MD Ot R16.1 SPLENOMEGALY, NOT ELSEWHERE CLASSIFIED 09/16/2016 JUAN M TERRY MD, Ot R16.1 SPLENOMEGALY, NOT ELSEWHERE CLASSIFIED 09/16/2016 JUAN M TERRY MD Ot R16.1 SPLENOMEGALY, NOT ELSEWHERE CLASSIFIED 09/16/2016 JUAN M TERRY MD, Ot R16.1 SPLENOMEGALY, NOT ELSEWHERE CLASSIFIED 09/17/2016 JUAN M TERRY MD, Ot O47.03 FALSE LABOR BEFORE 37 COMPLETED WEEKS OF 09/17/2016 JUAN M TERRY MD, Ot Z3A.30 30 WEEKS GESTATION OF 10/11/2016 JUAN M TERRY MD, Ot O23.93 UNSP TRACT INFECTION IN , 10/11/2016 JUAN M TERRY MD, Ot O60.03 LABOR WITHOUT DELIVERY, THIRD TR 10/11/2016 JUAN M TERRY MD, Ot Z3A.34 34 WEEKS GESTATION OF 10/12/2016 JUAN M TERRY MD Ot O23.93 UNSP TRACT INFECTION IN , 10/12/2016 JUAN M TERRY MD, Ot O60.03 LABOR WITHOUT DELIVERY, THIRD TR 10/12/2016 JUAN M TERRY MD, Ot Z3A.34 34 WEEKS GESTATION OF 10/16/2016 JUAN M TERRY MD, Ot O47.03 FALSE LABOR BEFORE 37 COMPLETED WEEKS OF 10/16/2016 JUAN M TERRY MD, Ot Z3A.35 35 WEEKS GESTATION OF 10/20/2016 JUAN M TERRY MD, Ot O09.219 SUPRVSN OF PREG W HISTORY OF PRE-TERM LA 10/20/2016 JUAN M TERRY MD, Ot O47.03 FALSE LABOR BEFORE 37 COMPLETED WEEKS OF 10/20/2016 JUAN M TERRY MD, Ot Z3A.35 35 WEEKS GESTATION OF 10/30/2016 JUAN M TERRY MD, Ot O47.03 FALSE LABOR BEFORE 37 COMPLETED WEEKS OF 10/30/2016 JUAN M TERRY MD, Ot Z3A.35 35 WEEKS GESTATION OF 10/30/2016 JUAN M TERRY MD, Ot O70.0 FIRST DEGREE PERINEAL LACERATION DURING 10/30/2016 JUAN M TERRY MD, Ot Z23 ENCOUNTER FOR IMMUNIZATION 10/30/2016 JUAN M TERRY MD, Ot Z37.0 SINGLE LIVE 10/30/2016 JUAN M TERRY MD, Ot Z3A.37 37 WEEKS GESTATION OF 11/24/2016 JUAN M TERRY MD, Ot R16.1 SPLENOMEGALY, NOT ELSEWHERE CLASSIFIED 11/24/2016 JUAN M TERRY MD, Ot O09.219 SUPRVSN OF PREG W HISTORY OF PRE-TERM LA 07/06/2018 JUAN M TERRY MD, Ot R16.1 SPLENOMEGALY, NOT ELSEWHERE CLASSIFIED 07/06/2018 JUAN M TERRY MD Ot O09.219 SUPRVSN OF PREG W HISTORY OF PRE-TERM LA 07/08/2018 JUAN M TERRY MD Ot Z12.31 ENCNTR SCREEN MAMMOGRAM FOR MALIGNANT NE 06/14/2019 JUAN M TERRY MD, Ot R16.1 SPLENOMEGALY, NOT ELSEWHERE CLASSIFIED 06/14/2019 JUAN M TERRY MD Ot O09.219 SUPRVSN OF PREG W HISTORY OF PRE-TERM LA 06/14/2019 JUAN M TERRY MD Ot Z12.31 ENCNTR SCREEN MAMMOGRAM FOR MALIGNANT NE Procedures Code Description Performed By Per formed On 75.69 08/21/2010 [id number] RE PAIR PERINEUM MUSCLE, OPEN APPROACH 07/30/2015 [id number] DE LIVERY OF PRODUCTS OF CONCEPTION, EXTE 07/30/2015 [id number] RE PAIR PERINEUM SKIN, EXTERNAL APPROACH 10/29/2016 [id number] DE LIVERY OF PRODUCTS OF CONCEPTION, EXTE 10/29/2016 Results Test Result Range Complete urinalysis with reflex to cultu re - 09/16/16 22:15 Urine color determination YELLOW NRG Urine clarity determination CLEAR NR G Urine pH measurement by test strip 6 5-9 Specific gravity of urine by test strip 1.020 1.016-1.022 Urine protein assay by test strip, semi-quantitative 2+ NEGATIVE Urine glucose detection by automated test strip NE GATIVE NEGATIVE Erythrocytes detection in urine sediment by light micr oscopy NEGATIVE NEGATIVE Urine ketones detection by automated test strip 3+ NEGATIVE Urine nitrite detection by test strip NEGATIVE NEGATIVE Urine total bilirubin detection by test strip 1+ NEGATIVE Urine urobilinogen measurement by automated test strip (mass/volume) 1 mg/dL NORMAL Urine leukocyte esterase detection by dipstick 2+ NEGATIVE Automated urine sediment erythrocyte cou nt by microscopy (number/high power field) NONE NRG Automated urine sediment leukocyte count by microscopy (number/high power field) [HPF] NRG Bacteria detection in urine sediment by light microsco py MODERATE NRG Squamous epithelial cells detection in u rine sediment by light microscopy 10-25 NRG Crystals detection in urine sediment by light microsco py NONE NRG Casts detection in urine sediment by light microscopy NONE NRG Mucus detection in urine sediment by light microscopy LARGE NRG Complete urinalysis with reflex to culture YES NRG Urine protein/creatinine mass ratio - 22:15 Urine protein measurement (mass/volume) 27 mg/dL 6-12 Urine creatinine measurement (mass/volume) 262 mg/ dL 30-125 Urine protein/creatinine mass ratio 0.10 NRG Bacterial urine culture - 09/16/16 22:15 URINE CULTURE RESULTS <10,000/ML NRG Complete blood count (CBC) with automate d white blood cell (WBC) differential - 09/16/16 22:40 Blood leukocytes automated count (number/volume) 10.9 10*3/uL 4.3-11.0 Blood erythrocytes automated count (number/volume) 4.02 10*6/uL 4.35-5.85 Venous blood hemoglobin measurement (mass/volume) 10.6 g/dL 11.5-16.0 Blood hematocrit (volume fraction) 33 % 35-52 Automated erythrocyte mean corpuscular volume 83 [ foz_us] 80-99 Automated erythrocyte mean corpuscular h emoglobin (mass per erythrocyte) 26 pg 25-34 Automated erythrocyte mean corpuscular h emoglobin concentration measurement (mass/volume) 32 g/dL 32-36 Automated erythrocyte distribution width ratio 13. 4 % 10.0- 14.5 Automated blood platelet count (count/volume) 134 10*3/uL 130-400 Automated blood platelet mean volume measurement 10.8 [foz_us] 7.4-10.4 Automated blood neutrophils/100 leukocytes 86 % 42-75 Automated blood lymphocytes/100 leukocytes 8 % 12-44 Blood monocytes/100 leukocytes 5 % 0-12 Automated blood eosinophils/100 leukocytes 2 % 0-10 Automated blood basophils/100 leukocytes 0 % 0-10 Blood neutrophils automated count (number/volume) 9.4 10*3 1.8-7.8 Blood lymphocytes automated count (number/volume) 0.9 10*3 1.0-4.0 Blood monocytes automated count (number/volume) 0. 5 10*3 0.0-1.0 Automated eosinophil count 0.2 10*3/uL 0 .0-0.3 Automated blood basophil count (count/volume) 0.0 10*3/uL 0.0-0.1 Comprehensive metabolic panel - 09/16/16 22:40 Serum or plasma sodium measurement (moles/volume) 136 mmol/L 135-145 Serum or plasma potassium measurement (moles/volume) 3.3 mmol/L 3.6-5.0 Serum or plasma chloride measurement (moles/volume) 105 mmol/L 98-107 Carbon dioxide 17 mmol/L 21-32 Serum or plasma anion gap determination (moles/volume) 14 mmol/L 5-14 Serum or plasma urea nitrogen measurement (mass/volume ) 10 mg/dL 7-18 Serum or plasma creatinine measurement (mass/volume) 0.69 mg/dL 0.60-1.30 Serum or plasma urea nitrogen/creatinine mass ratio 14 NRG Serum or plasma creatinine measurement w ith calculation of estimated glomerular filtration rate > NRG Serum or plasma glucose measurement (mass/volume) 92 mg/dL 70-105 Serum or plasma calcium measurement (mass/volume) 7.8 mg/dL 8.5-10.1 Serum or plasma total bilirubin measurement (mass/volu me) 0.4 mg/dL 0.1-1.0 Serum or plasma alkaline phosphatase lucas surement (enzymatic activity/volume) 95 U/L 40-136 Serum or plasma aspartate aminotransfera se measurement (enzymatic activity/volume) 25 U/L 5-34 Serum or plasma alanine aminotransferase measurement (enzymatic activity/volume) 16 U/L 0-55 Serum or plasma protein measurement (mass/volume) 6.3 g/dL 6.4-8.2 Serum or plasma albumin measurement (mass/volume) 3.2 g/dL 3.2-4.5 Serum or plasma uric acid measurement (m ass/volume) - 09/16/16 22:40 Serum or plasma uric acid measurement (mass/volume) 4.7 mg/dL 2.6-7.2 Lactate dehydrogenase 1 [enzymatic activ ity/volume] in serum or plasma - 09/16/16 22:40 Lactate dehydrogenase 1 [enzymatic activ ity/volume] in serum or plasma 179 U/L 125-220 Complete urinalysis with reflex to cultu re - 10/11/16 06:10 Urine color determination YELLOW NRG Urine clarity determination CLEAR NR G Urine pH measurement by test strip 7 5-9 Specific gravity of urine by test strip 1.010 1.016-1.022 Urine protein assay by test strip, semi-quantitative NEGATIVE NEGATIVE Urine glucose detection by automated test strip NE GATIVE NEGATIVE Erythrocytes detection in urine sediment by light micr oscopy NEGATIVE NEGATIVE Urine ketones detection by automated test strip NE GATIVE NEGATIVE Urine nitrite detection by test strip NEGATIVE NEGATIVE Urine total bilirubin detection by test strip NEGA TIVE NEGATIVE Urine urobilinogen measurement by automated test strip (mass/volume) NORMAL NORMAL Urine leukocyte esterase detection by dipstick 1+ NEGATIVE Automated urine sediment erythrocyte cou nt by microscopy (number/high power field) NONE NRG Automated urine sediment leukocyte count by microscopy (number/high power field) [HPF] NRG Bacteria detection in urine sediment by light microsco py TRACE NRG Squamous epithelial cells detection in u rine sediment by light microscopy 2-5 NRG Crystals detection in urine sediment by light microsco py NONE NRG Casts detection in urine sediment by light microscopy NONE NRG Mucus detection in urine sediment by light microscopy NEGATIVE NRG Complete urinalysis with reflex to culture YES NRG Bacterial urine culture - 10/11/16 06:10 URINE CULTURE RESULTS <10,000/ML NRG Complete blood count (CBC) with automate d white blood cell (WBC) differential - 10/11/16 07:19 Blood leukocytes automated count (number/volume) 11.9 10*3/uL 4.3-11.0 Blood erythrocytes automated count (number/volume) 3.94 10*6/uL 4.35-5.85 Venous blood hemoglobin measurement (mass/volume) 10.1 g/dL 11.5-16.0 Blood hematocrit (volume fraction) 32 % 35-52 Automated erythrocyte mean corpuscular volume 81 [ foz_us] 80-99 Automated erythrocyte mean corpuscular h emoglobin (mass per erythrocyte) 26 pg 25-34 Automated erythrocyte mean corpuscular h emoglobin concentration measurement (mass/volume) 32 g/dL 32-36 Automated erythrocyte distribution width ratio 14. 2 % 10.0- 14.5 Automated blood platelet count (count/volume) 160 10*3/uL 130-400 Automated blood platelet mean volume measurement 11.2 [foz_us] 7.4-10.4 Automated blood neutrophils/100 leukocytes 76 % 42-75 Automated blood lymphocytes/100 leukocytes 14 % 12-44 Blood monocytes/100 leukocytes 9 % 0-12 Automated blood eosinophils/100 leukocytes 2 % 0-10 Automated blood basophils/100 leukocytes 0 % 0-10 Blood neutrophils automated count (number/volume) 9.0 10*3 1.8-7.8 Blood lymphocytes automated count (number/volume) 1.6 10*3 1.0-4.0 Blood monocytes automated count (number/volume) 1. 0 10*3 0.0-1.0 Automated eosinophil count 0.3 10*3/uL 0 .0-0.3 Automated blood basophil count (count/volume) 0.0 10*3/uL 0.0-0.1 [id number] - 10/11/16 07:19 [id number] SPECIMEN AVAILABLE [facility] Complete blood count (CBC) with automate d white blood cell (WBC) differential - 10/16/16 18:25 Blood leukocytes automated count (number/volume) 10.4 10*3/uL 4.3-11.0 Blood erythrocytes automated count (number/volume) 3.69 10*6/uL 4.35-5.85 Venous blood hemoglobin measurement (mass/volume) 9.4 g/dL 11.5-16.0 Blood hematocrit (volume fraction) 30 % 35-52 Automated erythrocyte mean corpuscular volume 80 [ foz_us] 80-99 Automated erythrocyte mean corpuscular h emoglobin (mass per erythrocyte) 26 pg 25-34 Automated erythrocyte mean corpuscular h emoglobin concentration measurement (mass/volume) 32 g/dL 32-36 Automated erythrocyte distribution width ratio 14. 8 % 10.0- 14.5 Automated blood platelet count (count/volume) 166 10*3/uL 130-400 Automated blood platelet mean volume measurement 11.0 [foz_us] 7.4-10.4 Automated blood neutrophils/100 leukocytes 77 % 42-75 Automated blood lymphocytes/100 leukocytes 16 % 12-44 Blood monocytes/100 leukocytes 5 % 0-12 Automated blood eosinophils/100 leukocytes 3 % 0-10 Automated blood basophils/100 leukocytes 0 % 0-10 Blood neutrophils automated count (number/volume) 7.9 10*3 1.8-7.8 Blood lymphocytes automated count (number/volume) 1.6 10*3 1.0-4.0 Blood monocytes automated count (number/volume) 0. 5 10*3 0.0-1.0 Automated eosinophil count 0.3 10*3/uL 0 .0-0.3 Automated blood basophil count (count/volume) 0.0 10*3/uL 0.0-0.1 Blood type T Indirect antibody screen pa frances - 10/16/16 18:25 ABO+Rh group OP NRG Transfusion band number [id number] NR Blood group antibody screen NEGATIVE NR G Streptococcus agalactiae detection by or ganism specific culture - 10/16/16 19:30 QUANTITY OF GROWTH . NRG Streptococcus agalactiae detection by organism specifi c culture [id number] [facility] Complete blood count (CBC) with automate d white blood cell (WBC) differential - 10/29/16 01:38 Blood leukocytes automated count (number/volume) 9.9 10*3/uL 4.3-11.0 Blood erythrocytes automated count (number/volume) 3.94 10*6/uL 4.35-5.85 Venous blood hemoglobin measurement (mass/volume) 9.9 g/dL 11.5-16.0 Blood hematocrit (volume fraction) 31 % 35-52 Automated erythrocyte mean corpuscular volume 79 [ foz_us] 80-99 Automated erythrocyte mean corpuscular h emoglobin (mass per erythrocyte) 25 pg 25-34 Automated erythrocyte mean corpuscular h emoglobin concentration measurement (mass/volume) 32 g/dL 32-36 Automated erythrocyte distribution width ratio 15. 1 % 10.0- 14.5 Automated blood platelet count (count/volume) 132 10*3/uL 130-400 Automated blood platelet mean volume measurement 10.2 [foz_us] 7.4-10.4 Automated blood neutrophils/100 leukocytes 73 % 42-75 Automated blood lymphocytes/100 leukocytes 16 % 12-44 Blood monocytes/100 leukocytes 7 % 0-12 Automated blood eosinophils/100 leukocytes 4 % 0-10 Automated blood basophils/100 leukocytes 0 % 0-10 Blood neutrophils automated count (number/volume) 7.2 10*3 1.8-7.8 Blood lymphocytes automated count (number/volume) 1.6 10*3 1.0-4.0 Blood monocytes automated count (number/volume) 0. 7 10*3 0.0-1.0 Automated eosinophil count 0.4 10*3/uL 0 .0-0.3 Automated blood basophil count (count/volume) 0.0 10*3/uL 0.0-0.1 Blood type T Indirect antibody screen pa frances - 10/29/16 01:38 ABO+Rh group OP NRG Transfusion band number [id number] NRG Blood group antibody screen NEGATIVE NR G Complete blood count (CBC) with automate d white blood cell (WBC) differential - 06/14/19 01:00 Blood leukocytes automated count (number/volume) 8.3 10*3/uL 4.3-11.0 Blood erythrocytes automated count (number/volume) 4.22 10*6/uL 4.35-5.85 Venous blood hemoglobin measurement (mass/volume) 10.9 g/dL 11.5-16.0 Blood hematocrit (volume fraction) 34 % 35-52 Automated erythrocyte mean corpuscular volume 81 [ foz_us] 80-99 Automated erythrocyte mean corpuscular h emoglobin (mass per erythrocyte) 26 pg 25-34 Automated erythrocyte mean corpuscular h emoglobin concentration measurement (mass/volume) 32 g/dL 32-36 Automated erythrocyte distribution width ratio 15. 4 % 10.0- 14.5 Automated blood platelet count (count/volume) 129 10*3/uL 130-400 Automated blood platelet mean volume measurement 11.8 [foz_us] 7.4-10.4 Automated blood neutrophils/100 leukocytes 71 % 42-75 Automated blood lymphocytes/100 leukocytes 17 % 12-44 Blood monocytes/100 leukocytes 9 % 0-12 Automated blood eosinophils/100 leukocytes 2 % 0-10 Automated blood basophils/100 leukocytes 0 % 0-10 Blood neutrophils automated count (number/volume) 5.9 10*3 1.8-7.8 Blood lymphocytes automated count (number/volume) 1.4 10*3 1.0-4.0 Blood monocytes automated count (number/volume) 0. 8 10*3 0.0-1.0 Automated eosinophil count 0.2 10*3/uL 0 .0-0.3 Automated blood basophil count (count/volume) 0.0 10*3/uL 0.0-0.1 Encounters ACCT No. Visit Date/Time Discharge Status Pt. Type Provider Facility Loc./Unit Complaint [id number] 07/06/2018 10:11:00 019 23:59:59 CLS Outpatient JUAN M TERRY MD Via [facility] RAD BASELINE SCREEN ING [id number] 10/29/2016 01:04:00 017 12:00:00 DIS Inpatient JUAN M TERRY MD [facility] LDRP LABOR DELIVER Y [id number] 10/20/2016 21:46:00 017 23:26:00 DIS Outpatient JUAN M TERRY MD [facility] WSo CONTRACTIONS [id number] 10/16/2016 17:48:00 017 19:45:00 DIS [facility] NG [id number] 10/11/2016 06:01:00 017 14:15:00 DIS Outpatient JUAN M TERRY MD [facility] WSo CONTRACTIONS [id number] 10/05/2016 11:09:00 017 23:59:59 CLS Outpatient JUAN M TERRY MD [facility] HX OF PTL [id number] 09/16/2016 22:00:00 017 00:21:00 DIS Outpatient [facility] CR[facility] [id number] 07/30/2015 02:50:00 016 12:10:00 [id number]/16/2015 17:06:00 016 10:55:00 DIS Outpatient JUAN M TERRY MD [facility] WSo LABOR [id number] 06/24/2015 07:49:00 23:59:59 CLS Outpatient JUAN M TERRY MD [facility] RAD SPLEENOMEGALLY [id number] 06/14/2019 02:09:[address] [facility] [id number] 08/21/2010 04:28:00 Document Registration
[2019-06-14] MEDS ORDERED: BUPIVACAINE 0.25% 30 ML (SENSORCAINE) VIAL ONE (02:51)
[2019-06-14] MEDS ORDERED: fentaNYL INJECTION 100 MCG/2 ML AMP ONE (02:51)
--- NOTE | 2019-06-14 03:00 | History & Physical ---
History and Physical Date Seen by Provider: Jun 14, 2019 Time Seen by Provider: 02:57 This patient is a 37-year-old A2 white female with a due date of July 06, 2019 putting her at 36-5/7 weeks gestation. She presented in advanced active labor ears she denies rupture membranes or bleeding. She's had no complications with this . Her GBS culture was negative. Allergies are none Medications are vitamins and Diflucan Medical social and surgical histories are per the antepartum record HEENT exam is normal Neck is supple no lymphadenopathy no thyromegaly Abdomen is gravid soft nontender nondistended Extremities show no clubbing or cyanosis. There is no Homans sign. Pelvic exam shows a cervix 8 cm dilated 70 percent effaced -1 station vertex presentation with a soft anterior cervix and a bulging intact membrane Laboratory Tests Test 06/14/19 01:00 Range/Units White Blood Count 8.3 4.3-11.0 10^3/uL Red Blood Count 4.22 L 4.35-5.85 10^6/uL Hemoglobin 10.9 L 11.5-16.0 G/DL Hematocrit 34 L 35-52 % Mean Corpuscular Volume 81 80-99 FL Mean Corpuscular Hemoglobin 26 25-34 PG Mean Corpuscular Hemoglobin Concent 32 32-36 G/DL Red Cell Distribution Width 15.4 H 10.0-14.5 % Platelet Count 129 L 130-400 10^3/uL Mean Platelet Volume 11.8 H 7.4-10.4 FL Neutrophils (%) (Auto) 71 42-75 % Lymphocytes (%) (Auto) 17 12-44 % Monocytes (%) (Auto) 9 0-12 % Eosinophils (%) (Auto) 2 0-10 % Basophils (%) (Auto) 0 0-10 % Neutrophils # (Auto) 5.9 1.8-7.8 X 10^3 Lymphocytes # (Auto) 1.4 1.0-4.0 X 10^3 Monocytes # (Auto) 0.8 0.0-1.0 X 10^3 Eosinophils # (Auto) 0.2 0.0-0.3 10^3/uL Basophils # (Auto) 0.0 0.0-0.1 10^3/uL Assessment and plan labor at 36-5/7 weeks gestation in patient with mild thrombocytopenia. Her GBS culture was negative. We anticipate a vaginal delivery shortly 36 week/ labor Allergies and Home Medications Allergies Coded Allergies: No Known Drug Allergies (Verified , 10/20/16) Home Medications Docusate Sodium 100 Mg Capsule, 100 MG PO BID Prescribed by: JUAN M VILLALTA on 10/30/16 0747 Ibuprofen 800 Mg Tablet, 800 MG PO Q6H Prescribed by: JUAN M VILLALTA on 10/30/16 0747 Oxycodone HCl/Acetaminophen 1 Each Tablet, 1-2 TAB PO Q4HR PRN for PAIN-MODERATE TO SEVERE Prescribed by: JUAN M VILLALTA on 10/30/16 0747 Vits W-Ca,Fe,Fa(<1MG) 1 Each Tablet, 1 EACH PO DAILY, (Reported) Patient Home Medication List Home Medication List Reviewed: Yes JUAN M TERRY MD Jun 14, 2019 03:00
[2019-06-14] MEDS ORDERED: DOCU100C37 PO (03:05)
[2019-06-14] MEDS ORDERED: IBUP-1780 PO (03:05)
[2019-06-14] MEDS ORDERED: OXYC1TAB87 PO (03:05)
--- NOTE | 2019-06-14 03:05 | Discharge Inst-Surgical ---
Discharge Inst-Surgical Depart Medication/Instructions New, Converted or Re-Newed RX: RX on Chart Consults/Follow Up Patient Instructions: As directed Orders & Referrals Follow Up Appt: Call to make follow up appt. for patient in 4 weeks. Activity Per routine post vaginal delivery instructions. Please call in RX to patient pharmacy. Diet as tolerated Patient may shower or tub bathe as desired. Activity Activity as Tolerated: No Diet Discharge Diet: No Restrictions JUAN M TERRY MD Jun 14, 2019 03:05
[2019-06-14] MEDS ORDERED: LACTATED RINGERS 1,000 ML IV ONE (03:31)
[2019-06-14] MEDS ORDERED: OXYTOCIN PRE-MIX DRIP 500 ML IV SCH ×2 (03:41→06:17)
[2019-06-14] MEDS ORDERED: NALOXONE 0.4 MG/ML 1 ML (NARCAN) VIAL IV PRN (03:45)
[2019-06-14] MEDS ORDERED: ONDANSETRON 4 MG/2 ML (SDV) Z0FRAN IV PRN (03:45)
[2019-06-14] MEDS ORDERED: diphenhydrAMINE 50 MG/ML INJ (BENADRYL) IV PRN (03:45)
[2019-06-14] MEDS ORDERED: CATHETER FLUSH 10 ML SYR IV PRN (03:45)
[2019-06-14] MEDS ORDERED: EPIDURAL (fentaNYL 2 MCG/ML BUPIVA 0.125%)100 ML BAG EPI SCH (03:45)
[2019-06-14] MEDS ORDERED: LIDOCAINE/EPI 2% 1:200,00 (XYLOCAINE) 10 ML VIAL ONE (04:31)
--- NOTE | 2019-06-14 05:24 | OPERATIVE REPORT ---
DATE OF SERVICE: 06/14/2019 The patient delivered by spontaneous vaginal delivery a viable male with Apgars of 8 and 8 at 1 and 5 minutes respectively, weight of 6 pounds 9 ounces, time of 0046 and a cord blood pH of 7.31. The was delivered over a second-degree perineal laceration under epidural analgesia. The was bulb suctioned on delivery of the head and again on completion of delivery. Umbilical cord was doubly clamped, father cut the cord, and the baby was passed to mom's abdomen. The was quickly pink, moved all extremities, had excellent tone and reflexes and a vigorous cry. The did appear to have a somewhat Down's facies. The placenta delivered spontaneously Adrian. It was normal with a 3-vessel cord. The cervix, vagina, rectum, and perineum were examined and found intact, except for a second-degree perineal laceration that was repaired with a single suture of 3-0 Vicryl Rapide in the usual manner. Sponge and needle counts were correct on completion of delivery and repair. Estimated blood loss was around 300 mL. The patient tolerated the delivery and the repair well and remained in the LDR for recovery. The baby remained with the mom. Job ID: [id number] DocumentID: [id number] Dictated Date: 06/14/2019 05:12:03 High Rigger Date: 06/14/2019 05:24:10 Dictated By: JUAN M TERRY MD [facility]
[2019-06-14] MEDS ORDERED: CATHETER FLUSH 10 ML SYR IV SCH (06:00)
[2019-06-14] MEDS ORDERED: KETOROLAC 30 MG/ML VIAL ONE (06:15)
[2019-06-14] MEDS: KETOROLAC 30 MG/ML VIAL IVP SCH ×2 (06:24→11:26)
[2019-06-14] MEDS ORDERED: oxyCODONE/APAP 5/325MG (PERCOCET 5) TABLET PO PRN (06:30)
[2019-06-14] MEDS ORDERED: MEASLES,MUMPS,RUBELLA 1 EA INJ SC ONE (06:30)
[2019-06-14] MEDS ORDERED: ONDANSETRON 4 MG/2 ML (SDV) Z0FRAN IVP PRN (06:30)
[2019-06-14] MEDS ORDERED: BENZOCAINE/MENTHOL (DERMOPLAST) 60 ML CAN TP PRN (06:30)
[2019-06-14] MEDS ORDERED: TETANUS,DIPTH,PERTUSS P/F (BOOSTRIX) 0.5 ML VIAL IM ONE (06:30)
[2019-06-14] MEDS ORDERED: DOCUSATE SODIUM 100 MG (COLACE) CAP PO SCH (09:00)
--- NOTE | 2019-06-14 09:33 | Anesthesia-Regional Post-Op ---
Regional Patient Condition Mental Status: Alert, Oriented x3 Circulation: Same as Pre-Op Headache: Absent Sensation: Full Recovery Motor Block: Absent Post Op Complications Complications None Follow Up Care/Instructions Patient Instructions None needed. Anesthesia/Patient Condition Patient is doing well, no complaints, stable vital signs, no apparent adverse anesthesia problems. No complications reported per nursing. LIMA PEREZ CRNA Jun 14, 2019 09:33
[2019-06-19] MEDS ORDERED: IBUPROFEN 800 MG (MOTRIN) TAB PO SCH (12:00)
== END 2019-06-14 12:05 | disposition home or self-care (01) | DRG 806 ==
LOC: WSo 00:11 → LDRP 00:12 → WSo 02:08 → LDRP 02:09
PROVIDERS: ADMIT Obstetrics & Gynecology; ATTEND Obstetrics & Gynecology
PROC: 10E0XZZ Delivery of Products of Conception, External Approach (ICD-10-PCS; principal; 2019-06-14)
PROC: 0KQM0ZZ Repair Perineum Muscle, Open Approach (ICD-10-PCS; 2019-06-14)
DX: O60.14X0 Preterm labor third trimester with preterm delivery third trimester, not applicable or unspecified (principal); Z37.0 Single live birth; O99.12 Other diseases of the blood and blood-forming organs and certain disorders involving the immune mechanism complicating childbirth; O70.1 Second degree perineal laceration during delivery; D69.6 Thrombocytopenia, unspecified; Z3A.36 36 weeks gestation of pregnancy; Z23 Encounter for immunization
CPT/HCPCS: 36415; 85025; 86850; 86900; 86901; 90715; 99212

== ENCOUNTER 2019-08-30 10:27 | Outpatient (RCR) | payer BC, MEDICAID ==
[~2019-08-30] VITALS: Ht 175 cm; Wt 68.1 kg
[~2019-08-30 10:27] MED LIST changes: +OXYC1TAB87 PO
== END 2019-08-30 15:15 | disposition home or self-care (01) ==
LOC: PREOP 10:27
PROVIDERS: ATTEND Obstetrics & Gynecology
DX: Z01.818 Encounter for other preprocedural examination (principal); Z01.812 Encounter for preprocedural laboratory examination; N81.6 Rectocele; Z20.828 Contact with and (suspected) exposure to other viral communicable diseases
CPT/HCPCS: 87635

== ENCOUNTER 2019-09-05 13:00 | Day surgery (SDC) | payer BC, MEDICAID ==
[2019-09-05] VITALS (11 sets, daily range): BP systolic 116–153; BP diastolic 73–97
[~2019-09-05] VITALS: Ht 175 cm; Wt 68.1 kg
[2019-09-05] MEDS ORDERED: ESTRADIOL VAGINAL CREAM 42.5 GM (ESTRACE) VG ONE (13:03)
[2019-09-05] MEDS ORDERED: DEXAMETHASONE 10 MG/ML (DECADRON) 1 ML VIAL ONE (13:33)
[2019-09-05] MEDS ORDERED: proPOfol 200 MG/20 ML (DIPRIVAN) VIAL IV ONE (13:33)
[2019-09-05] MEDS ORDERED: LIDOCAINE PF 2% 5 ML (XYLOCAINE) VIAL ONE (13:33)
[2019-09-05] MEDS ORDERED: ONDANSETRON 4 MG/2 ML (SDV) Z0FRAN ONE (13:33)
[2019-09-05] MEDS ORDERED: SEVOFLURANE (ULTANE) 15 ML INHAL SOLN ONE (13:34)
[2019-09-05] MEDS ORDERED: MIDAZOLAM 2 MG/2 ML (VERSED) VIAL ONE (13:34)
[2019-09-05] MEDS ORDERED: fentaNYL INJECTION 100 MCG/2 ML AMP ONE (13:34)
[2019-09-05 13:47] LABS: BASOPHILS % (AUTO) 0 % (0-10); EOSINOPHILS # (AUTO) 0.1 10^3/uL (0.0-0.3); EOSINOPHILS % (AUTO) 2 % (0-10); HEMATOCRIT 40 % (35-52); LYMPHOCYTES # (AUTO) 1.4 X 10^3 (1.0-4.0); LYMPHOCYTES % (AUTO) 28 % (12-44); MEAN CORPUSCULAR HEMOGLOBIN 26 PG (25-34); MEAN CORPUSCULAR HGB CONC 32 G/DL (32-36); MEAN CORPUSCULAR VOLUME 79 FL (80-99); MEAN PLATELET VOLUME 10.5 FL (7.4-10.4); MONOCYTES # (AUTO) 0.4 X 10^3 (0.0-1.0); MONOCYTES % (AUTO) 9 % (0-12); NEUTROPHILS # (AUTO) 3.1 X 10^3 (1.8-7.8); NEUTROPHILS % (AUTO) 60 % (42-75); PLATELET COUNT 177 10^3/uL (130-400); WHITE BLOOD COUNT 5.1 10^3/uL (4.3-11.0)
[2019-09-05] MEDS ORDERED: ceFAZolin INJECTION 1,000 MG in WATER (STERILE) FOR INJECTION 10 ML IV ONE (14:00)
[2019-09-05] MEDS: LACTATED RINGERS 1,000 ML IV PRN ×2 (14:01→14:39)
--- NOTE | 2019-09-05 14:08 | Progress Note-Pre Operative ---
Pre-Operative Progress Note H&P Reviewed The H&P was reviewed, patient examined and no changes noted. Date Seen by Provider: Sep 05, 2019 Time Seen by Provider: 14:08 Date H&P Reviewed: Sep 05, 2019 Time H&P Reviewed: 14:08 Pre-Operative Diagnosis: Rectocele/perineal pain JUAN M TERRY MD Sep 05, 2019 14:08
[2019-09-05] MEDS ORDERED: D5 LR IV SOLUTION 1,000 ML IV SCH (14:09)
--- NOTE | 2019-09-05 14:09 | Progress Note-Post Operative ---
Post-Operative Progess Note Surgeon (s)/Associate Product Integrity Engineer (s) Surgeon JUAN M TERRY MD Associate Product Integrity Engineer: Yes Pre-Operative Diagnosis Rectocele/perineal pain Post-Operative Diagnosis same Procedure & Operative Findings Date of Procedure 09/05/19 Procedure Performed/Findings Post colporrhaphy Anesthesia Type GETA Estimated Blood Loss Estimated blood loss (mL): 150cc Specimens/Packing Specimens Removed Perineal skin and scar JUAN M TERRY MD Sep 05, 2019 14:09
[2019-09-05] MEDS ORDERED: OXYC1TAB87 PO (14:11)
[2019-09-05] MEDS ORDERED: IBUP-1780 PO (14:11)
--- NOTE | 2019-09-05 14:12 | Discharge Inst-Surgical ---
Discharge Inst-Surgical Depart Medication/Instructions New, Converted or Re-Newed RX: RX on Chart Consults/Follow Up Patient Instructions: as directed Orders & Referrals Follow Up Appt: Call to make follow up appt. for patient in 2 weeks. Activity: Rest for 24 hours, than as tolerated. Please call in RX to patient pharmacy. Diet: As tolerated-Clear Liquids only if nauseated. shower or tub bathe as desired. No driving for 24 hours, no alcoholic beverages for 24 hours, and nothing per vagina (no tampons, douching, or intercourse) for 2 weeks. Patient to return to the clinic as soon as possible for: Temperature greater than 101F, Severe Pain, Foul discharge from incision or vagina, Excessive Bleeding (more than a period). Activity Activity as Tolerated: No Diet Discharge Diet: No Restrictions JUAN M TERRY MD Sep 05, 2019 14:12
[2019-09-05] MEDS ORDERED: PROMETHAZINE INJ 25 MG/ML (PHENERGAN) AMP IM ONE (14:15)
[2019-09-05] MEDS ORDERED: KETOROLAC 30 MG/ML VIAL IVP ONE (14:15)
[2019-09-05] MEDS ORDERED: MEPERIDINE (DEMEROL) INJ 100 MG/ML IM ONE (14:15)
[2019-09-05] MEDS ORDERED: oxyCODONE/APAP 5/325MG (PERCOCET 5) TABLET PO PRN (14:15)
[2019-09-05] MEDS ORDERED: ONDANSETRON 4 MG/2 ML (SDV) Z0FRAN IVP PRN ×2 (14:15→15:15)
[2019-09-05] MEDS ORDERED: HYDROmorphone 2 MG/ML VIAL (DILAUDID) ONE (14:29)
--- OUTSIDE RECORDS SUMMARY | 2019-09-05 14:49 | XMS REPORT | Continuity of Care Document ---
Author Organization Unknown Address Unknown Phone Unavailable Allergies Active Description Code Type Severity Reaction Onset Reported/Identified Relationship to Patient Clinical Status Yes No Known Drug Allergies [id number] Drug Allergy Unknown N/A 08/29/2019 Medications There is no data. Problems Date Dx Coded Attending Type Code Diagnosis Diagnosed By 01/27/1514 JUAN M TERRY MD, Ot N81.6 RECTOCELE 01/27/1514 JUAN M TERRY MD, Ot Z01.812 ENCOUNTER FOR PREPROCEDURAL LABORATORY E 01/27/1514 JUAN M TERRY MD, Ot Z01.818 ENCOUNTER FOR OTHER PREPROCEDURAL EXAMIN 01/27/1514 JUAN M TERRY MD, Ot Z20.828 CONTACT W AND EXPOSURE TO OTH VIRAL COMM 08/21/2010 Ot 644.21 EAR LY ONSET DELIVERY-DEL 08/21/2010 Ot 663.31 COR D ENTANGLE NEC-DELIV 08/21/2010 Ot 664.01 DEL W 1 DEG LACERAT-DEL 08/21/2010 Ot V27.0 DELI SLY-SINGLE LIVEBORN 06/25/2015 JUAN M TERRY MD Ot R16.1 SPLENOMEGALY, NOT ELSEWHERE CLASSIFIED 06/25/2015 JUAN M TERRY MD Ot R16.1 SPLENOMEGALY, NOT ELSEWHERE CLASSIFIED 06/30/2015 JUAN M TERRY MD, Ot R16.1 SPLENOMEGALY, NOT ELSEWHERE CLASSIFIED 07/09/2015 JUAN M TERRY MD, Ot R16.1 SPLENOMEGALY, NOT ELSEWHERE CLASSIFIED 07/17/2015 JUAN M TERRY MD, Ot K59.00 CONSTIPATION, UNSPECIFIED 07/17/2015 JUAN M TERRY MD Ot O23.43 UNSP INFCT OF URINARY TRACT IN 07/17/2015 JUAN M TERRY MD, Ot O60.03 LABOR [...] TERRY MD, Ot O99.613 [facility] 07/25/2015 JUAN M TERRY MD, Ot Z3A.34 34 WEEKS GESTATION OF 07/30/2015 JUAN M TERRY MD, Ot R16.1 SPLENOMEGALY, NOT ELSEWHERE CLASSIFIED 08/01/2015 JUAN M TERRY MD, Ot O60.14X0 LABOR THIRD TRI W DELIVE 08/01/2015 JUAN M TERRY MD, Ot O70.1 SECOND DEGREE PERINEAL LACERATION DURING 08/01/2015 JUAN M TERRY MD, Ot Z23 ENCOUNTER FOR IMMUNIZATION 08/01/2015 JUAN M TERRY MD, Ot Z37.0 SINGLE LIVE 08/01/2015 JUAN M TERRY MD, Ot Z3A.36 36 WEEKS GESTATION OF 08/07/2015 JUAN M TERRY MD, Ot R16.1 SPLENOMEGALY, NOT ELSEWHERE CLASSIFIED 08/13/2015 JUAN M TERRY MD, Ot R16.1 SPLENOMEGALY, NOT ELSEWHERE CLASSIFIED 08/14/2015 JUAN M TERRY MD, Ot O60.14X0 LABOR THIRD TRI W DELIVE 08/14/2015 JUAN M TERRY MD, Ot O70.1 SECOND DEGREE PERINEAL LACERATION DURING 08/14/2015 JUAN M TERRY MD, Ot Z23 ENCOUNTER FOR IMMUNIZATION 08/14/2015 JUAN M TERRY MD, Ot Z37.0 SINGLE LIVE 08/14/2015 JUAN M [...] MD Ot R16.1 SPLENOMEGALY, NOT ELSEWHERE CLASSIFIED 09/17/2016 JUAN M TERRY MD Ot O47.03 FALSE LABOR BEFORE 37 COMPLETED WEEKS OF 09/17/2016 JUAN M TERRY MD Ot Z3A.30 30 WEEKS GESTATION OF 10/11/2016 JUAN M TERRY MD Ot O23.93 UNSP TRACT INFECTION IN , TH 10/11/2016 JUAN M TERRY MD Ot O60.03 LABOR WITHOUT DELIVERY, THIRD TR 10/11/2016 JUAN M TERRY MD Ot Z3A.34 34 WEEKS GESTATION OF 10/12/2016 JUAN M TERRY MD Ot O23.93 UNSP TRACT INFECTION IN , TH 10/12/2016 JUAN M TERRY MD Ot O60.03 LABOR WITHOUT DELIVERY, THIRD TR 10/12/2016 JUAN M TERRY MD Ot Z3A.34 34 WEEKS GESTATION OF 10/16/2016 JUAN M TERRY MD Ot O47.03 FALSE LABOR BEFORE 37 COMPLETED WEEKS OF 10/16/2016 JUAN M TERRY MD Ot Z3A.35 35 WEEKS GESTATION OF 10/20/2016 JUAN M TERRY MD Ot O09.219 SUPRVSN [...] SINGLE LIVE 10/30/2016 JUAN M TERRY MD, Ot3A.37 37 WEEKS GESTATION OF 11/24/2016 JUAN M TERRY MD, Ot R16.1 SPLENOMEGALY, NOT ELSEWHERE CLASSIFIED 11/24/2016 JUAN M TERRY MD, Ot O09.219 SUPRVSN OF PREG W HISTORY OF PRE-TERM LA 07/06/2018 JUAN M TERRY MD Ot R16.1 SPLENOMEGALY, NOT ELSEWHERE CLASSIFIED 07/06/2018 [...] FOR MALIGNANT NE 06/14/2019 JUAN M TERRY MD Ot R16.1 SPLENOMEGALY, NOT ELSEWHERE CLASSIFIED 06/14/2019 JUAN M TERRY MD Ot O09.219 SUPRVSN OF PREG W HISTORY OF PRE-TERM LA 06/14/2019 JUAN M TERRY MD, Ot Z12.31 ENCNTR SCREEN MAMMOGRAM FOR MALIGNANT NE 06/14/2019 JUAN M TERRY MD, Ot D69.6 THROMBOCYTOPENIA, UNSPECIFIED 06/14/2019 JUAN M TERRY MD, Ot O60.14X0 LABOR THIRD TRI W DELIVE 06/14/2019 JUAN M TERRY MD, Ot O70.1 SECOND DEGREE PERINEAL LACERATION DURING 06/14/2019 JUAN M TERRY MD, Ot O99.12 OTH DIS OF THE BLD/BLD-FORM ORG/IMMUN ME 06/14/2019 JUAN M TERRY MD, Ot Z23 ENCOUNTER FOR IMMUNIZATION 06/14/2019 JUAN M TERRY MD, Ot Z37.0 SINGLE LIVE 06/14/2019 JUAN M TERRY MD, Ot Z3A.36 36 WEEKS GESTATION OF Procedures Code Description Performed By Kade ellsworth On 75.69 08/21/2010 [id number] RE PAIR PERINEUM MUSCLE, OPEN APPROACH 07/30/2015 [id number] DE LIVERY OF PRODUCTS OF CONCEPTION, EXTE 07/30/2015 [id number] RE PAIR PERINEUM SKIN, EXTERNAL APPROACH 10/29/2016 [id number] DE LIVERY OF PRODUCTS OF CONCEPTION, EXTE 10/29/2016 [id number] RE PAIR PERINEUM MUSCLE, OPEN APPROACH 06/14/2019 [id number] DE LIVERY OF PRODUCTS OF CONCEPTION, EXTE 06/14/2019 Results Test Result Range Complete urinalysis with [...] blood basophil count (count/volume) 0.0 10*3/uL 0.0-0.1 [id number] - 10/11/16 07:19 [id number] SPECIMEN AVAILABLE [facility] Complete blood count (CBC) with automate d [...] ABO+Rh group OP NRG Transfusion band number [id number] NRG Blood group antibody screen NEGATIVE NR G Streptococcus agalactiae detection by or ganism specific culture - 10/16/16 19:30 QUANTITY OF GROWTH . NRG Streptococcus agalactiae detection by organism specifi c culture [id number] NR Complete blood count (CBC) with automate d [...] ABO+Rh group OP NRG Transfusion band number [id number] NRG Blood group antibody screen NEGATIVE NR [...] T Indirect antibody screen pa frances - 06/14/19 01:00 WRISTBAND NUMBER [id number] NRG ABO+Rh group OP NRG Blood group antibody screen NEGATIVE NR G Coronavirus SARS-CoV-2 SO 2019 - 0 11:00 Coronavirus Ab [Units/volume] in Serum Negative Negative Complete blood count (CBC) with automate d white blood cell (WBC) differential - 09/05/19 13:30 Blood leukocytes automated count (number/volume) 5.1 10*3/uL 4.3-11.0 Blood erythrocytes automated count (number/volume) 5.08 10*6/uL 4.35-5.85 Venous blood hemoglobin measurement (mass/volume) 13.0 g/dL 11.5-16.0 Blood hematocrit (volume fraction) 40 % 35-52 Automated erythrocyte mean corpuscular volume 79 [ foz_us] 80-99 Automated erythrocyte mean corpuscular h emoglobin (mass per erythrocyte) 26 pg 25-34 Automated erythrocyte mean corpuscular h emoglobin concentration measurement (mass/volume) 32 g/dL 32-36 Automated erythrocyte distribution width ratio 17. 0 % 10.0- 14.5 Automated blood platelet count (count/volume) 177 10*3/uL 130-400 Automated blood platelet mean volume measurement 10.5 [foz_us] 7.4-10.4 Automated blood neutrophils/100 leukocytes 60 % 42-75 Automated blood lymphocytes/100 leukocytes 28 % 12-44 Blood monocytes/100 leukocytes 9 % 0-12 Automated blood eosinophils/100 leukocytes 2 % 0-10 Automated blood basophils/100 leukocytes 0 % 0-10 Blood neutrophils automated count (number/volume) 3.1 10*3 1.8-7.8 Blood lymphocytes automated count (number/volume) 1.4 10*3 1.0-4.0 Blood monocytes automated count (number/volume) 0. 4 10*3 0.0-1.0 Automated eosinophil count 0.1 10*3/uL 0 .0-0.3 Automated blood basophil count (count/volume) 0.0 10*3/uL 0.0-0.1 Encounters ACCT No. Visit Date/Time Discharge Status Pt. Type Provider Facility Loc./Unit Complaint [id number] 08/30/2019 10:27:00 020 15:15:00 VIANCA Outpatient JUAN M TERRY MD [facility] PREOP RECTOCELE [id number] 06/14/2019 02:09:00 020 12:05:00 DIS Inpatient JUAN M TERRY MD [facility] LDRP LABOR [id number] 07/06/2018 10:11:00 019 23:59:59 CLS Outpatient JUAN M TERRY MD [facility] RAD BASELINE SCREEN ING [id number] 10/29/2016 01:04:00 017 12:00:00 VIANCA Inpatient JUAN M TERRY MD [facility] LDRP LABOR DELIVER Y [id number] 10/20/2016 21:46:00 017 23:26:00 DIS Outpatient JUAN M TERRY MD [facility] WSo CONTRACTIONS [id number] 10/16/2016 17:48:00 017 19:45:00 DIS Outpatient JUAN M TERRY MD [facility] WSo BLEEDING,CRAMPI NG [id number] 10/11/2016 06:01:00 017 14:15:00 DIS Outpatient JUAN M TERRY MD [facility] WSo CONTRACTIONS [id number] 10/05/2016 11:09:00 017 23:59:59 CLS Outpatient JUAN M TERRY MD [facility] WSo HX OF PTL [id number] 09/16/2016 22:00:00 017 00:21:00 VIANCA Outpatient JUAN M TERRY MD [facility] WSo CRAMPING [id number] 07/30/2015 02:50:00 016 12:10:00 DIS Inpatient JUAN M TERRY MD [facility] LDRP CTXS [id number] 07/16/2015 17:06:00 016 10:55:00 DIS Outpatient JUAN M TERRY MD [facility] WSo LABOR [id number] 06/24/2015 07:49:00 016 23:59:59 CLS Outpatient JUAN M TERRY MD [facility] RAD SPLEENOMEGALLY [id number] 09/05/2019 13:00:00 P EN Preadmit JUAN M TERRY MD [facility] SDC RECTOCELE [id number] 08/21/2010 04:28:00 Document Registration
--- OUTSIDE RECORDS SUMMARY | 2019-09-05 14:49 | XMS REPORT ---
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 H-art (WPP) [facility] [employer] [facility] [employer] Address [address] [place] [address] Care Team Providers Care Learning And Development Officer Name Role Phone JAH MAYEN Unavailable JUAN M TERRY Unavailable JUAN M TERRY MD Unavailable Unavailable JUAN M TERRY MD Unavailable Unavailable JUAN M TERRY MD Unavailable Unavailable JUAN M TERRY MD Unavailable Unavailable Unavailable Unavailable Unavailable Unavailable Unavailable Unavailable Allergies Allergy Reported Allergen(s) Allergy Type Date of Reaction(s) Care Facility Classificati Onset Provider on Unclassified No Known Drug Allergies DA 10-20-2016 DELMY Guerra [facility] (9 sources) HARRISON [facility] ([id number]) Encounters Encounter Date Encounter Type Encounter Diagnosis Care Provider Facility Start: Patient encounter JUAN M TERRY [facility] 09-05-2019 procedure [facility] Start: Patient encounter JUAN M TERRY [facility] 08-30-2019 procedure [facility] [place] End: 08-30-2019 Start: Evaluation and JUAN M TERRY [facility] 06-13-2019 management of [facility] inpatient End: 06-14-2019 Start: Patient encounter JUAN M TERRY [facility] 06-13-2019 procedure [facility] [place] End: 06-14-2019 Start: Patient encounter JUAN M TERRY [facility] 06-13-2019 procedure [facility] Start: Patient encounter JUAN M TERRY [facility] Vi a 07-06-2018 procedure [facility] ([id number]) Start: Patient encounter JUAN M TERRY [facility] 07-06-2018 procedure [facility] Start: Patient encounter JUAN M TERRY Not Av ailable ([id number]) 10-28-2016 procedure Start: Evaluation and JUAN M TERRY [facility] 10-28-2016 management of [facility] inpatient End: 10-30-2016 Start: Patient encounter JUAN M TERRY [facility] 10-20-[address] [facility] End: 10-20-2016 Start: Patient encounter JUAN M TERRY [facility] 10-16-[address] [facility] End: 10-16-2016 Start: Patient encounter JUAN M TERRY [facility] 10-11-2016 procedure [facility] End: 10-11-2016 Start: Patient encounter JUAN M TERRY [facility] 10-05-2016 procedure [facility] Start: Patient encounter JUAN M TERRY [facility] 09-16-[address] [facility] End: 09-16-2016 Start: Evaluation and JUAN M TERRY [facility] 07-29-2015 management of [facility] inpatient End: 08-01-2015 Start: Patient encounter JUAN M TERRY [facility] 07-16-2015 procedure [facility] End: 07-17-2015 Start: Patient encounter JUAN M TERRY [facility] 06-24-2015 procedure [facility] Patient encounter NA NA [facility] procedure [facility] Encounter for other JUAN M EDOUARDTHAM [facility] preprocedural [facility] g examination ([id number]) Medical Equipment No Information Goals No Information Immunizations Immunizatio Immunization Notes Care Provider Facility n Date 06-14-2019 tetanus toxoid, NA NA [facility] diphtheria [facility] toxoid, and acellular (69596) pertussis vaccine, adsorbed Interventions No Information Medications No Information Payers No Information Plan of Treatment The data below is from unstructured sources Discharge Date 07/17/15 10:55am Instructions/Education Provided OB O UTPATIENT DISCHARGE Prescriptions See Medication Section Discharge Date 08/01/15 12:10pm Disposition 01 HOME, SELF-CARE Instructions/Education Provided POST DISCHARGE VAGINAL DELIVERY DISCHARGE Forms Provided PDI Prescriptions See Medication Section Referrals (Unspecified) - Reason(s) for Referral: 4 week post follow up appointment on , August 27 @ 10:30 Additional Instructions/Education ca [...] Provided Follow-Up Fax Prescriptions See Medication Section Problems Problem Problem Date Last Documented Episodic/Chr Provider Classificati Recorded Date onic on Coagulation Thrombocytopenia, unspecified 09-04-2019 Chronic JUAN M and HARRISON hemorrhagic MD disorders (6 sources) Early or False labor before 37 completed 09-04-2019 Episodi c JUAN M threatened weeks of gestation, third trimester HARRISON labor ; Translations: [ labor MD (22 sources) without delivery, [facility]] Immunization Encounter for immunization ; 09-04-2019 Episodic JUAN M s and Translations: [Contact with and RAYO YU screening (suspected) exposure to other viral MD for communicable diseases] infectious disease (21 sources) OB-related First degree perineal laceration 09-04-2019 Episod ic JUAN M trauma to during delivery ; Translations: RAYO YU perineum and [Second degree perineal laceration vulva during delivery] (19 sources) Other Other diseases of the blood and 09-04-2019 Episodi c JUAN M complication blood-forming organs and certain HI GGINBOTHAM s of ; disorders involving the immune MD puerperium mechanism complicating chil dbirth affecting management of mother (6 sources) Other Supervision of with Episodic JUAN M complication history of pre-term labor, HIGGINBO RAMONITA s of unspecified trimester MD (5 sources) Other Unspecified genitourinary tract Episodic JUAN M complication infection in , third HIGGI NBOTHAM s of trimester MD (6 sources) Other Diseases of the digestive system Episodic JUAN M complication complicating , third HIGGI NBOTHAM s of trimester MD (7 sources) Other Unspecified infection of urinary Episodic JUAN M complication tract in , third trimester HARRISON s of MD (7 sources) Other Constipation, unspecified Episodic DE NNIS gastrointest HARRISON inal MD disorders (7 sources) Other Splenomegaly, not elsewhere Episodic JUAN M gastrointest classified HARRISON inal MD disorders (6 sources) Other Single live 09-04-2019 Episodic JUAN M HARRISON and delivery MD including normal (19 sources) Other Encounter for screening mammogram Episodic JUAN M screening for malignant neoplasm of breast HI GGINBOTHAM for MD suspected conditions (not mental disorders or infectious disease) (3 sources) Prolapse of Rectocele 09-04-2019 Chronic JUAN M female HARRISON genital MD organs (2 sources) Residual 35 weeks gestation of Episodic JUAN M codes; HARRISON unclassified MD (8 sources) Residual 30 weeks gestation of Episodic JUAN M codes; HARRISON unclassified MD (7 sources) Residual 37 weeks gestation of Episodic JUAN M codes; HARRISON unclassified MD (7 sources) Residual 34 weeks gestation of Episodic JUAN M codes; HARRISON unclassified MD (13 sources) Residual 36 weeks gestation of 09-04-2019 Episodi c JUAN M codes; HARRISON unclassified MD (12 sources) Procedures Date Procedure Procedure Detail Performing Cl inician Start: DELIVERY OF JUAN M TERRY MD 06-14-2019 PRODUCTS OF CONCEPTION, EXTE Start: Repair Perineum JUAN M TERRY MD 06-14-2019 Muscle, Open Approach Start: DELIVERY OF JUAN M TERRY MD 10-29-2016 PRODUCTS OF CONCEPTION, EXTE Start: Repair Perineum JUAN M TERRY MD 10-29-2016 Skin, External Approach Start: DELIVERY OF JUAN M ETRRY MD 07-30-2015 PRODUCTS OF CONCEPTION, EXTE Start: Repair Perineum JUAN M TERRY MD 07-30-2015 Muscle, Open Approach Repair Perineum JUAN M TERRY MD Skin, External Approach DELIVERY OF JUAN M TERRY MD PRODUCTS OF CONCEPTION, EXTE Repair Perineum JUAN M TERRY MD Muscle, Open Approach Results Test Name Value Interpreta Reference Facilit Date tion Range y Time laboratory on 2019-09-05 Basophils (Bld) 0.0 10*3/uL Negative 0.0-0.1 PENDING 09-04 [#/Vol] 10*3/uL [facility] 020 [facility] 09:30-0 ([id number]) 400 Basophils/100 WBC 0 % Negative 0-10 % PENDING 09-04 (Bld) [facility] 020 [facility] 09:30-0 ([id number]) 400 Eosinophils (Bld) 0.1 10*3/uL Negative 0.0-0.3 PENDING 09-29 [#/Vol] 10*3/uL [facility] 020 [facility] 09:30-0 ([id number]) 400 Eosinophils/100 WBC 2 % Negative 0-10 % PENDING 09-29 (Bld) [facility] 020 [facility] 09:30-0 ([id number]) 400 Erythrocyte 17.0 % High 10.0-14.5 PENDING distribution width % [facility] 020 (RBC) [Ratio] [facility] 09:30-0 ([id number]) 400 Hematocrit (Bld) 40 % Negative 35-52 % PENDING [Volume fraction] [facility] 020 [facility] 09:30-0 ([id number]) 400 Hemoglobin (Bld) 13.0 g/dL Negative 11.5-16.0 PENDING [Mass/Vol] g/dL [facility] 020 [facility] 09:30-0 ([id number]) 400 Lymphocytes (Bld) 1.4 10*3/uL Negative 1.0-4.0 PENDING 09-29 [#/Vol] 10*3 [facility] 020 [facility] 09:30-0 ([id number]) 400 Lymphocytes/100 WBC 28 % Negative 12-44 % PENDING 09-29 (Bld) [address] 09:30-0 ([id number]) 400 MCH (RBC) [Entitic 26 pg Negative 25-34 pg PENDING 8-2 mass] [address] 09:30-0 ([id number]) 400 MCHC (RBC) 32 g/dL Negative 32-36 g/dL PENDING [Mass/Vol] [address] 09:30-0 ([id number]) 400 MCV (RBC) [Entitic 79 Low 80-99 PENDING -0 8-2 vol] [foz_us] [address] 09:30-0 ([id number]) 400 Monocytes (Bld) 0.4 10*3/uL Negative 0.0-1.0 PENDING 09-04 [#/Vol] 10*[address] 09:30-0 ([id number]) 400 Monocytes/100 WBC 9 % Negative 0-12 % PENDING 09-04 (Bld) [address] 09:30-0 ([id number]) 400 Neutrophils (Bld) 3.1 10*3/uL Negative 1.8-7.8 PENDING 09-29 [#/Vol] 10*[address] 09:30-0 ([id number]) 400 Neutrophils/100 WBC 60 % Negative 42-75 % PENDING 09-29 (Bld) [address] 09:30-0 ([id number]) 400 Platelet mean volume 10.5 High 7.4-10.4 PENDING (Bld) [Entitic vol] [foz_us] [address] 09:30-0 ([id number]) 400 Platelets (Bld) 177 10*3/uL Negative 130-400 PENDING 09-04 [#/Vol] 10*3/uL [address] 09:30-0 ([id number]) 400 RBC (Bld) [#/Vol] 5.08 10*6/uL Negative 4.35-5.85 PENDING 2 10*6/uL [address] 09:30-0 ([id number]) 400 WBC (Bld) [#/Vol] 5.1 10*3/uL Negative 4.3-11.0 PENDING 09-29 10*3/uL [facility] 020 [facility] 09:30-0 ([id number]) 400 not yet categorized on 2019-06-14 NAME: MAUREEN NORTON ~MED REC#: [id number] Invalid PENDING ~ ~PHYSICIAN: LIMA Lawler CRNA ~Regional ~Patient tion Code N [facility] Condition ~Mental Status: Alert, Oriented x3 (0000 0) ~Circulation: Same as Pre-Op ~Headache: Absent ~Sensation: Full Recovery ~Motor Block: Absent ~ ~Post Op Complications ~Complications ~None ~ ~Follow Up Care/Instructions ~Patient Instructions ~None needed. ~ ~Anesthesia/Patient Condition ~Patient is doing well, no complaints, stable vital signs, no apparent adverse anesth esia problems. ~ ~No complications reported per nursing. ~ ~ ~ ~LIMA PEREZ CRNA Jun 14, 2019 09:33 ~ ~ ~<Created by TK PEREZ CRNA> ~<Electronically signed by LIMA PEREZ CRNA> 06/14/19 0933 ~ ~ not yet categorized on 2019-06-13 WRISTBAND NUMBER [id number] Invalid PENDING Interpreta [facility] 020 tion Code N [facility] 23:16-0 ([id number]) 400 laboratory on 2019-06-13 ABO and Rh group Nom OP Invalid PENDING 06-12 (Bld) Interpreta [facility] 020 tion Code N [facility] 23:17-0 ([id number]) 400 Basophils (Bld) 0.0 10*3/uL Negative 0.0-0.1 PENDING 06-12 [#/Vol] 10*3/uL [facility] 020 [facility] 21:00-0 ([id number]) 400 Basophils/100 WBC 0 % Negative 0-10 % PENDING 06-12 (Bld) [facility] 020 [facility] 21:00-0 ([id number]) 400 Blood group antibody Negative Invalid PENDING 06-12 screen Ql Interpreta [facility] 020 tion Code N [facility] 23:33-0 ([id number]) 400 Eosinophils (Bld) 0.2 10*3/uL Negative 0.0-0.3 PENDING 15-2 [#/Vol] 10*3/uL [facility] 020 [facility] 21:00-0 ([id number]) 400 Eosinophils/100 WBC 2 % Negative 0-10 % PENDING -2 (Bld) [facility] 020 [facility] 21:000 (89395) 400 Erythrocyte 15.4 % High 10.0-14.5 PENDING 06-12-2 distribution width % [facility] 020 (RBC) [Ratio] [facility] 21:000 ([id number]) 400 Hematocrit (Bld) 34 % Low 35-52 % PENDING 06-12- 2 [Volume fraction] [address] :000 (04440) 400 Hemoglobin (Bld) 10.9 g/dL Low 11.5-16.0 PENDING 15- 2 [Mass/Vol] g/dL [address] :000 ([id number]) 400 Lymphocytes (Bld) 1.4 10*3/uL Negative 1.0-4.0 PENDING -2 [#/Vol] 10*3 [facility] [address] [place] [address] :00-0 ([id number]) 400 Lymphocytes/100 WBC 17 % Negative 12-44 % PENDING -2 (Bld) [facility] 21:000 ([id number]) 400 MCH (RBC) [Entitic 26 pg Negative 25-34 pg PENDING 04-1 5-2 mass] [facility] 020 [facility] :00-0 ([id number]) 400 MCHC (RBC) 32 g/dL Negative 32-36 g/dL PENDING 06-12-2 [Mass/Vol] [facility] [address] [place] [address] 21:00-0 ([id number]) 400 MCV (RBC) [Entitic 81 Negative 80-99 PENDING 04-1 5-2 vol] [foz_us] [facility] 020 [facility] 21:00-0 ([id number]) 400 Monocytes (Bld) 0.8 10*3/uL Negative 0.0-1.0 PENDING -15 -2 [#/Vol] 10*[address] [place] [address] 21:00-0 ([id number]) 400 Monocytes/100 WBC 9 % Negative 0-12 % PENDING 06-12 (Bld) [facility] 020 N S :000 ([id number]) 400 Neutrophils (Bld) 5.9 10*3/uL Negative 1.8-7.8 PENDING [#/Vol] 10*3 [facility] 020 [facility] :000 ([id number]) 400 Neutrophils/100 WBC 71 % Negative 42-75 % PENDING (Bld) [facility] 020 [facility] :000 (02135) 400 Platelet mean volume 11.8 High 7.4-10.4 PENDING (Bld) [Entitic vol] [foz_us] [facility] 020 [facility] :000 ([id number]) 400 Platelets (Bld) 129 10*3/uL Low 130-400 PENDING 06-12 [#/Vol] 10*3/uL [facility] :0 ([id number]) 400 RBC (Bld) [#/Vol] 4.22 10*6/uL Low 4.35-5.85 PENDING 10*6/uL [facility] 020 [facility] :00-0 (78557) 400 WBC (Bld) [#/Vol] 8.3 10*3/uL Negative 4.3-11.0 PENDING 10*3/uL [facility] 020 [facility] :000 (04763) 400 Social History No Information Vital Signs The data below is from unstructured sources Vital Response Date/Time Temperature (Fahrenheit) 97.2 degree s F (97.6 - 99.5) 07/17/2015 8:26am Temperature (Calculated Celsius) 36. 01769 degrees C (36.4 - 37.5) 07/17/2015 8:26am [...] inches 07/16/2015 6:16pm Height (Calculated Centimeters) 172. 515945 cm 07/16/2015 6:16pm Weight (Pounds) 153 pounds 07/16/2015 6:16pm Weight (Ounces) 0.0 oz 0 07/16/2015 6:16pm Weight (Calculated Grams) 49958.633 gm 07/16/2015 6:16pm Weight (Calculated Kilograms) 69.399 633 kilograms 07/16/2015 6:16pm Calculated BMI 23.3 06/28 6:16pm Vital Response Date/Time Temperature (Fahrenheit) 98.5 degree s F (97.6 - 99.5) 08/01/2015 8:55am Temperature (Calculated Celsius) 36. 93137 degrees C (36.4 - 37.5) 08/01/2015 8:55am [...] inches 07/30/2015 3:00am Height (Calculated Centimeters) 173. 694143 cm 07/30/2015 3:00am Weight (Pounds) 153 pounds 07/30/2015 3:00am Weight (Ounces) 6.0 oz 0 07/30/2015 3:00am Weight (Calculated Grams) 54341.730 gm 07/30/2015 3:00am Weight (Calculated Kilograms) 69.569 730 kilograms 07/30/2015 3:00am Calculated BMI 23.0 02/2015 3:00am Vital Response Date/Time Temperature (Fahrenheit) 98.6 degree s F (97.6 - 99.5) 10/11/2016 11:30am Temperature (Calculated Celsius) 37. 34994 degrees C (36.4 - 37.5) 10/11/2016 11:30am [...] inches 10/11/2016 6:16am Height (Calculated Centimeters) 170. 241896 cm 10/11/2016 6:16am Weight (Pounds) 153 pounds 10/11/2016 6:16am Weight (Ounces) 0.0 oz 0 10/11/2016 6:16am Weight (Calculated Grams) 22738.63 gm 10/11/2016 6:16am Weight (Calculated Kilograms) 69.399 633 kilograms 10/11/2016 6:16am Calculated BMI 24.0 09/28 6:16am Weight Measurement Method Standing Scale 10/11/2016 6:16am Vital Response Date/Time Temperature (Fahrenheit) 97.9 degree s F (97.6 - 99.5) 10/16/2016 7:45pm Temperature (Calculated Celsius) 36. 16650 degrees C (36.4 - 37.5) 10/16/2016 6:00pm [...] inches 10/16/2016 5:55pm Height (Calculated Centimeters) 172. 730518 cm 10/16/2016 5:55pm Weight (Pounds) 160 pounds 10/16/2016 5:55pm Weight (Ounces) 4.0 oz 0 10/16/2016 5:55pm Weight (Calculated Grams) 14590.18 gm 10/16/2016 5:55pm Weight (Calculated Kilograms) 72.688 178 kilograms 10/16/2016 5:55pm Calculated BMI 24.4 09/28 5:55pm Weight Measurement Method Standing Scale 10/16/2016 5:55pm Vital Response Date/Time Temperature (Fahrenheit) 98.2 degree s F (97.6 - 99.5) 10/20/2016 10:05pm Temperature (Calculated Celsius) 36. 40919 degrees C (36.4 - 37.5) 10/20/2016 10:05pm [...] inches 10/20/2016 9:57pm Height (Calculated Centimeters) 172. 966685 cm 10/20/2016 9:57pm Weight (Pounds) 163 pounds 10/20/2016 9:57pm Weight (Ounces) 4.0 oz 0 10/20/2016 9:57pm Weight (Calculated Grams) 22287.96 gm 10/20/2016 9:57pm Weight (Calculated Kilograms) 74.048 955 kilograms 10/20/2016 9:57pm Calculated BMI 24.8 09/29 9:57pm Weight Measurement Method Standing Scale 10/20/2016 9:57pm Vital Response Date/Time Temperature (Fahrenheit) 96.8 degree s F (97.6 - 99.5) 10/30/2016 12:00pm Temperature (Calculated Celsius) 36. 29679 degrees C (36.4 - 37.5) 10/30/2016 10:41am [...] inches 10/28/2016 9:59pm Height (Calculated Centimeters) 172. 136788 cm 10/28/2016 9:59pm Weight (Pounds) 165 pounds 10/28/2016 9:59pm Weight (Ounces) 10.0 oz 10/28/2016 9:59pm Weight (Calculated Grams) 56246.24 gm 10/28/2016 9:59pm Weight (Calculated Kilograms) 75.126 237 kilograms 10/28/2016 9:59pm Calculated BMI 25.2 09/30 9:59pm Weight Measurement Method Standing Scale 10/28/2016 9:59pm Vital Response Date/Time Temperature (Fahrenheit) 96.8 degree s F (97.6 - 99.5) 10/30/2016 12:00pm Temperature (Calculated Celsius) 36. 85039 degrees C (36.4 - 37.5) 10/30/2016 10:41am [...] inches 10/28/2016 9:59pm Height (Calculated Centimeters) 172. 387788 cm 10/28/2016 9:59pm Weight (Pounds) 165 pounds 10/28/2016 9:59pm Weight (Ounces) 10.0 oz 10/28/2016 9:59pm Weight (Calculated Grams) 30952.24 gm 10/28/2016 9:59pm Weight (Calculated Kilograms) 75.126 237 kilograms 10/28/2016 9:59pm Calculated BMI 25.2 09/30 9:59pm Weight Measurement Method Standing Scale 10/28/2016 9:59pm Functional Status The data below is from unstructured sources Query Response Date Prashant rded Patient Orientation Person Place Time Situation Eyes Open August 14, 2015 2:55pm Query Response Date Prashant rded Patient Orientation Person Place Time Situation Eyes Open August 01, 2015 12:19pm No functional status information available. Mental Status No Information Clinical Note Note Date & Note Facility Type Note NAME: MAUREEN NORTON ~MED REC#: [id number] ~ACCOUNT#: PENDING LOCATION [facility] [id number] ~PHYSICIAN: JUAN M TERRY MD ~Pr e-Operative ([id number]) Progress Note ~H P Reviewed ~The H P wa s reviewed, patient examined and no changes noted. ~Date Se en by Provider: Sep 05, 2019 ~Time Seen by Provider: 14:08 ~Date H P Reviewed: Sep 05, 2019 ~Time H P Reviewed: 14:08 ~Pre-Operativ e Diagnosis: Rectocele/perineal pain ~ ~ ~ ~JUAN M CELAYA MD Sep 05, 2019 14:08 ~ ~ ~<Created by JUAN M BOWMAN MD> ~<Electronically signed by JUAN M YU MD> 09/05/19 3288 ~ ~ Advance Directives Directive Response Recor ded Date/Time Advance Directives Yes 0 07/16/15 6:13pm Health Care Power of Chartered Wealth Manager No 07/16/15 6:13pm Organ Donor Yes 07/16/15 6:13pm Resuscitation Status Full Code 07/16/15 6:13pm Directive Response Recor ded Date/Time Advance Directives Yes 0 07/30/15 3:00am Health Care Power of Chartered Wealth Manager No 07/30/15 3:00am Organ Donor Yes 07/30/15 3:00am Resuscitation Status Full Code 07/30/15 3:00am Directive Response Recor ded Date/Time Advance Directives Yes 0 10/11/16 6:09am Health Care Power of Chartered Wealth Manager Yes 10/11/16 6:09am Organ Donor Yes 10/11/16 6:09am Resuscitation Status Full Code 10/11/16 6:09am Directive Response Recor ded Date/Time Advance Directives Yes 0 10/16/16 6:08pm Health Care Power of Chartered Wealth Manager Yes 10/16/16 6:08pm Organ Donor Yes 10/16/16 6:08pm Resuscitation Status Full Code 10/16/16 6:08pm Directive Response Recor ded Date/Time Advance Directives Yes 0 10/20/16 10:05pm Health Care Power of Chartered Wealth Manager Yes 10/20/16 10:05pm Organ Donor Yes 10/20/16 10:05pm Resuscitation Status Full Code 10/20/16 10:05pm Directive Response Recor ded Date/Time Advance Directives Yes 0 10/28/16 9:59pm Health Care Power of Chartered Wealth Manager Yes 10/28/16 9:59pm Organ Donor Yes 10/28/16 [...] This clinical document has been generated using [employer] software that has been certified by the Office of the National Coordinator for Health Information Technology (ONC 15.99.04.3023.Diam.31.00.0.312415) and the National Committee for Seismograph Helper (NCQA, as an eMeasure certified technology). FOR [...] BASED ON T HE PRIMARY CLINICAL RECORDS. [employer] provides no warranty or guara ntee of the accuracy or completeness of information in this document.The followi ng information is based on time limited clinical information
[2019-09-05] MEDS ORDERED: morphine INJ 10 MG/ML 1ML (SYR OR VIAL) ONE (15:09)
--- NOTE | 2019-09-05 15:10 | Anesthesia-General Post-Op ---
General Patient Condition Mental Status/LOC: Same as Preop Cardiovascular: Satisfactory Nausea/Vomiting: Absent Respiratory: Satisfactory Pain: Controlled Complications: Absent Post Op Complications Complications None Follow Up Care/Instructions Patient Instructions None needed. Anesthesia/Patient Condition Patient Condition Patient is doing well, no complaints, stable vital signs, no apparent adverse anesthesia problems. No complications reported per nursing. GAIL ARANA CRNA Sep 05, 2019 15:09
[2019-09-05] MEDS ORDERED: MEPERIDINE (DEMEROL) INJ 50 MG/ML IVP ONE (15:15)
[2019-09-05] MEDS ORDERED: fentaNYL INJECTION 100 MCG/2 ML AMP IVP ONE (15:15)
[2019-09-05] MEDS ORDERED: morphine INJ 10 MG/ML 1ML (SYR OR VIAL) IVP ONE (15:15)
--- NOTE | 2019-09-05 15:50 | NUR ---
TO AMB SURG FROM PAR PER CART. ALERT, RATES RECTAL/PERINEAL PAIN AT 5. MINIMAL AMOUNT OF BRIGHT RED BLOOD ON V-PAD. PO FLUIDS AND CRACKERS PROVIDED.
[2019-09-05] MEDS ORDERED: oxyCODONE/APAP 5/325MG (PERCOCET 5) TABLET ONE (16:14)
--- NOTE | 2019-09-05 16:21 | NUR ---
TAKING PO FLUIDS WITHOUT PROBLEM. RATES SURGICAL SITE PAIN 2. PERCOCET 5/325 MG, ONE TAB, GIVEN PO FOR PAIN CONTROL PER REQUEST.
--- NOTE | 2019-09-05 17:10 | NUR ---
SMALL EMESIS, STATES SHE FEELS BETTER AFTER VOMITING. PAIN RATE 2.
--- NOTE | 2019-09-05 17:35 | NUR ---
CONTINUES TO HAVE MINIMAL AMOUNT OF BLOODY DRAINAGE TO V-PAD. NO FURTHER EMESIS, TAKING PO FLUIDS. ALERT, REQUESTING DISMISSAL. RATES PAIN 1-2.
--- NOTE | 2019-09-05 23:45 | OPERATIVE REPORT ---
DATE OF SERVICE: 09/05/2019 PREOPERATIVE DIAGNOSES: Rectocele with perineal pain and scar. POSTOPERATIVE DIAGNOSES: Rectocele with perineal pain and scar. OPERATIVE PROCEDURE: Posterior repair with scar revision. OPERATIVE DESCRIPTION: With the patient in the supine position under satisfactory general anesthesia, she was repositioned in dorsal lithotomy position in the Stephan stirrups and prepped and draped in the usual fashion for vaginal surgery. Urinary bladder was drained with a straight catheter. Joseph clamps were placed on the perineum and hymenal ring at 5 and 7 o'clock positions an inverted triangle skin was removed from the perineal body. Using as the base of the triangle the two Joseph clamps, the apex was approximately 3 cm down on the perineal body. There was a nodular scar in the posterior fourchette and protruding up the posterior vaginal wall where the patient had evidence of a rectocele. An upright triangle of skin was removed from the posterior vaginal floor using the same base of the apex approximately 3.5 cm into the posterior vaginal wall. Dissection was carried down around the scars allowing for removal of the entire scar complex and the perineal in the rectovaginal distal septum and the perineal body. That tissue was sent to pathology for permanent section. The rectovaginal space was then dissected almost to the apex of the vagina and it was explored for an enterocele there being none, the rectovaginal space was obliterated with interrupted sutures of 2-0 Vicryl reducing the rectocele and reapproximating the perineal body in the process. The perineal body was restored with additional sutures of 2-0 Vicryl. Redundant posterior vaginal wall muscularis mucosa was removed sharply. Vaginal wall was then closed with a running locked suture of 3-0 Vicryl Rapide starting at the apex of the defect and continuing down to the hymenal ring and across the hymenal ring down the perineal skin and then continuing back up subcutaneous to the hymenal ring where the suture was tied. Digital rectal exam confirmed no stricture or stenosis of the rectum. There were no sutures into or through the rectal mucosa. Sponge and needle counts at this point were correct. Blood loss was around 150 mL. The patient tolerated the procedure well and was uneventfully awakened from general anesthesia and transferred to recovery room in stable condition with plans for discharge home PAR. Job ID: [id number] DocumentID: [id number] Dictated Date: 09/05/2019 14:48:01 Insurance Territory Manager Date: 09/05/2019 23:44:45 Dictated By: JUAN M TERRY MD
== END 2019-09-05 17:45 | disposition home or self-care (01) ==
LOC: EDSTATUS 13:00 → SDC 13:00
PROVIDERS: ATTEND Obstetrics & Gynecology
DX: N81.6 Rectocele (principal); N90.89 Other specified noninflammatory disorders of vulva and perineum; Z11.2 Encounter for screening for other bacterial diseases
CPT/HCPCS: 36415; 84703; 85025; 87081; 88305

== ENCOUNTER → 2020-07-24 | Outpatient (CLI) | payer MEDICAID ==
[~2020-07-24] MED LIST changes: -OXYC-465 PO; +OXYC-556 PO
--- NOTE | 2020-07-29 13:33 | Diagnostic Imaging Report ---
INDICATION: Routine screening. COMPARISON: 07/06/2018. TECHNIQUE: 2D and 3D bilateral screening mammography was performed with CAD. FINDINGS: Both breasts are heterogeneously dense, limiting the sensitivity of mammography. No mass or malignant appearing microcalcifications are seen. The axillae are unremarkable. IMPRESSION: No mammographic features suspicious for malignancy are identified. ACR BI-RADS Category 1: Negative. Result letter will be mailed to the patient. Note: At least 10% of breast cancer is not imaged by mammography. Dictated on workstation # [id number]
== END ==
LOC: RAD 15:15
PROVIDERS: ATTEND Obstetrics & Gynecology
DX: Z12.31 Encounter for screening mammogram for malignant neoplasm of breast (principal)
CPT/HCPCS: 77063; 77067

== ENCOUNTER 2020-07-25 05:43 | Outpatient (CLI) | payer MEDICAID ==
[~2020-07-25] VITALS: Ht 172.7 cm; Wt 68.2 kg
== END 2020-07-29 15:17 | disposition home or self-care (01) ==
LOC: PREOP 05:43
PROVIDERS: ATTEND Internal Medicine
DX: Z01.818 Encounter for other preprocedural examination (principal)

== ENCOUNTER 2020-08-01 09:29 | Day surgery (SDC) | payer MEDICAID ==
--- NOTE | 2020-07-24 13:09 | HISTORY AND PHYSICAL ---
DATE OF SERVICE: COLONOSCOPY HISTORY AND PHYSICAL HISTORY OF PRESENT ILLNESS: The patient is a 40-year-old white female referred by Dr. Ya for diagnostic colonoscopy. She reports over the past several months she has noticed change in stool caliber that becoming more narrow. She has had a few episodes of small volume bright red blood per rectum and sometimes reports a little bit of discomfort after a stool. She denies any significant pain in the active having a bowel movement and she denies urgency, diarrhea or constipation. She has had reported abnormal Pap test. Reports no physical evidence for genital warts. She is 6, para 6, Children's ages 14 to 1. PAST MEDICAL HISTORY: Otherwise is noncontributory. She takes no medication. Reports no known drug allergies. PAST SURGICAL HISTORY: She had a rectocele repair in 08/2019, had an appendectomy 10 years ago. FAMILY HISTORY: Father had history of colon polyps in his early 60s. Mother is living with no health problems at the age of 61. No other family history for GI tract malignancy that she is aware of. 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 REVIEW OF SYSTEMS: CONSTITUTIONAL: She denies change in weight, night sweats, chills or fever. CARDIOVASCULAR: She denies chest pain, orthopnea, PND, syncope or presyncope. CARDIOVASCULAR: She denies shortness of breath, cough or wheezing. GASTROINTESTINAL: As noted in the HPI. PHYSICAL EXAMINATION: GENERAL: Reveals well-appearing normal white female, in no acute distress. VITAL SIGNS: Weight 149 pounds, blood pressure 120/90. HEENT: Unremarkable. Sclerae nonicteric. CHEST: Clear to auscultation. CARDIOVASCULAR: Reveals a regular rate and rhythm without murmur, S3 or S4. ABDOMEN: Soft, supple without mass, organomegaly or tenderness. Well-healed periumbilical scar noted. EXTREMITIES: Reveal no cyanosis, clubbing or edema. ASSESSMENT AND PLAN: For intermittent bright red blood per rectum and stool caliber change, the patient is being set up for diagnostic colonoscopy on 08/01/2020. Prep instructions with the Suprep kit were given and questions were answered. I thank you for the referral of this pleasant lady. Job ID: [id number] DocumentID: [id number] Dictated Date: 07/24/2020 11:53:31 Court Worker Date: 07/24/2020 12:17:17 Dictated By: PARISA REINOSO MD
[~2020-08-01] VITALS: Ht 172 cm; Wt 68.0 kg
[~2020-08-01 09:29] MED LIST changes: +LACTATED RINGERS 1,000 ML IV ONE
[2020-08-01] MEDS ORDERED: LACTATED RINGERS 1,000 ML IV STA (09:33)
[2020-08-01 09:40] VITALS: BP 123/87
[2020-08-01] MEDS ORDERED: LIDOCAINE JELLY 2% 6 ML SYRINGE MM PRN (09:45)
[2020-08-01] MEDS ORDERED: PROPOFOL INJECTION 50 ML IV ONE (10:13)
[2020-08-01 10:55] VITALS: BP 115/74
[2020-08-01 11:00] VITALS: BP 133/84
[2020-08-01 11:25] VITALS: BP 137/103
[2020-08-01] MEDS ORDERED: IOHEXOL 350 MG/ML 100 ML (OMNIPAQUE 350) VIAL IV ONE (12:30)
[2020-08-01] MEDS ORDERED: NS 100 ML (IVPB) BAG IV ONE (12:30)
[2020-08-01] MEDS ORDERED: HOLD METFORMIN - RECEIVED CONTRAST 20 ML VIAL IV SCH (12:30)
--- NOTE | 2020-08-01 13:09 | Pre-Op Note & Conscious Sedat ---
Pre-Operative Progress Note H&P Reviewed The H&P was reviewed, patient examined and no changes noted. Date H&P Reviewed: Aug 01, 2020 Time H&P Reviewed: 10:00 Conscious Sedation Pre-Proced ASA Score 1 For ASA 3 and 4: Consider anesthesia and medical clearance. Also, for patients with a history of failed moderate sedation consider anesthesia. Airway Lungs Heart ASA score ASA 1: a normal healthy patient ASA 2: a patient with a mild systemic disease (mid diabetes, controlled hypertension, obesity ASA 3: a patient with a severe systemic disease that limits activity (angina, COPD, prior Myocardial infarction) ASA 4: a patient with an incapacitating disease that is a constant threat to life (CHF, renal failure) ASA 5: a moribund patient not expected to survive 24 hrs. (ruptured aneurysm) ASA 6: a declared brain- patient whose organs are being harvested. For emergent operations, add the letter E after the classification Mallampati Classification Grade 2 Sedation Plan Analgesia, Amnesia, Plan communicated to team members, Discussed options with patient/fam, Discussed risks with patient/fam The patient is an appropriate candidate to undergo the planned procedure, sedation, and anesthesia. The patient immediately re-assessed prior to indication. PARISA REINOSO MD Aug 01, 2020 13:09
[2020-08-01 13:20] VITALS: BP 137/103
--- NOTE | 2020-08-01 14:07 | Diagnostic Imaging Report ---
PROCEDURE: CT abdomen and pelvis with and without contrast. TECHNIQUE: Precontrast acquisitions were acquired through the abdomen and pelvis. Multiple contiguous axial images were obtained through the abdomen and pelvis after the administration of intravenous contrast. Auto Exposure Controls were utilized during the CT exam to meet ALARA standards for radiation dose reduction. DATE: August 01, 2020. COMPARISON: Ultrasound abdomen complete June 24, 2015. CT abdomen and pelvis August 27, 2008. INDICATION: 40-year-old female, anterior rectal mass. FINDINGS: There is mild dependent atelectasis in the lung bases. The heart is not enlarged. There is no pericardial effusion. The liver is unremarkable in size and contour. There is no identified focal liver lesion. The main, right, and left portal veins are patent. The gallbladder is unremarkable. There is no biliary ductal dilation. The main pancreatic duct is not abnormally dilated. Unremarkable appearance of the pancreatic parenchyma. The spleen is normal in size. The adrenal glands are unremarkable. Unremarkable appearance of the renal parenchyma. The urinary collecting systems are not distended. There is no identified renal or ureteral stone. Urinary bladder is unremarkable. The uterus and adnexa are grossly unremarkable in appearance Limited CT assessment. The intestinal tract is not distended. There is no free intraperitoneal air. There is no drainable fluid collection. There is no sizable volume free pelvic fluid. There is no identified abnormally enlarged lymph node in the abdomen or pelvis meeting CT size criteria for adenopathy. There is no CT apparent colonic or other intestinal wall thickening or mass. Correlation with colonoscopy and direct visualization is recommended given the provided history. There is no identified bone lesion concerning for a metastatic lesion. There is no otherwise identified acute bony abnormality. There are mild disc degenerative changes at L5-S1. IMPRESSION: CT ABDOMEN AND PELVIS. 1. No evidence of metastatic disease in the abdomen or pelvis. 2. No clearly identified rectal mass or other abnormal bowel wall thickening. Recommend correlation with colonoscopy or known history given provided history. Dictated by: Dictated on workstation # [id number]
--- NOTE | 2020-08-01 15:01 | Anesthesia-General Post-Op ---
MAC Patient Condition Mental Status/LOC: Same as Preop Cardiovascular: Satisfactory Nausea/Vomiting: Absent Respiratory: Satisfactory Pain: Controlled Complications: Absent Post Op Complications Complications None Follow Up Care/Instructions Patient Instructions None needed. Anesthesiology Discharge Order Discharge Order Patient was seen after the procedure and she was doing well, no complaints, stable vital signs, no apparent adverse anesthesia problems. JUANI SEXTON 4, 2021 15:01
[2020-08-01 16:14] LABS: BUN/CREATININE RATIO 11; CREATININE SERUM 0.99 MG/DL (0.60-1.30); GFR ESTIMATED > 60
--- NOTE | 2020-08-01 16:59 | OPERATIVE REPORT ---
DATE OF SERVICE: COLONOSCOPY SUMMARY INDICATION FOR THE PROCEDURE: Rectal bleeding with change in bowel habit. DESCRIPTION OF PROCEDURE: Prior to undergoing colonoscopy, digital rectal evaluation was performed. Anal sphincter tone was normal. Perianal reflexes intact. No perineal abnormalities were noted. A small anterior internal hemorrhoid was noted. No evidence for external hemorrhoids were noted. Several firm predominantly anterior masses were noted on digital inspection, feeling extrinsic to the rectum and visualization and no rectal lining abnormalities were noted and there was no evidence for obstruction. No evidence for inflammatory change was noted. The sigmoid colon, descending colon, splenic flexure, transverse colon, hepatic flexure, ascending colon and cecum were unremarkable with no evidence for neoplasia or diverticular disease. ASSESSMENT: Small internal hemorrhoid noted with stigmata to suggest recent bleeding, likely source of this patient's small volume rectal bleeding. No evidence for colitis was noted. The patient did have several anterior masses, extrinsic to the rectum, very hard on digital inspection. She is not aware of history of endometriosis or uterine fibroids. She is 6, para 6, all natural deliveries, the last one, one year ago. She does not believe that she has had any previous CT scans, so she was set up for CT abdomen and pelvis for further investigation. I will forward results when available. I thank you for the referral of this pleasant lady. Job ID: [id number] DocumentID: [id number] Dictated Date: 08/01/2020 12:12:42 Air Director Date: 08/01/2020 16:57:54 Dictated By: PARISA REINOSO MD
--- NOTE | 2020-08-04 21:18 | OPERATIVE REPORT ---
DATE OF SERVICE: ADDENDUM This is a followup on the patient's CT of the abdomen and pelvis done for firm extrinsic masses noted on digital inspection of the anterior rectum. CT did not reveal any abnormalities, adenopathy, etc. This is most likely compatible with exuberant scarring and/or granuloma formation result of the patient's previous anterior rectocele repair done in 08/2019. She has not had any constitutional or abdominal symptoms other than small amount of mucus pink tinge from the rectum only compatible with likely source from the small hemorrhoid noted on colonoscopy, which was otherwise unremarkable. She had no mucosal abnormalities over the anterior rectal wall to gross inspection. She was reassured by today's findings. I thank you for the referral of this pleasant lady. Job ID: [id number] DocumentID: [id number] Dictated Date: 08/04/2020 13:33:35 Commercial Driver'S License Driver Date: 08/04/2020 21:17:43 Dictated By: PARISA REINOSO MD
== END 2020-08-01 13:20 | disposition home or self-care (01) ==
LOC: ENDO 09:29
PROVIDERS: ATTEND Internal Medicine
DX: K64.8 Other hemorrhoids (principal); R19.5 Other fecal abnormalities
CPT/HCPCS: 36415; 74178; 82565; 84520